=== PATIENT | female | born 1965 | race Caucasian/White ===

== ENCOUNTER 2017-09-19 16:20 | Inpatient (IN) | payer OTHER ==
[2017-09-19 17:31] VITALS: BMI 21.2
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
[2017-09-19] MEDS ORDERED: chlordiazePOXIDE HCL 25 MG CAPSULE PO PRN (18:06)
[2017-09-19] MEDS ORDERED: IBUPROFEN 400 MG TABLET (FP) PO PRN (18:06)
[2017-09-19] MEDS ORDERED: ACETAMINOPHEN 325 MG TABLET (FP) PO PRN (18:06)
[2017-09-19] MEDS ORDERED: MAGNESIUM CITRATE 300 ML BOTTLE PO PRN (18:06)
[2017-09-19] MEDS ORDERED: P-EPHED 60MG/TRIPROLIDI 2.5MG TABLET PO PRN (18:06)
[2017-09-19] MEDS ORDERED: guaiFENesin/D-METHORPHAN HB 10 ML UNIT-DOSE CUPS PO PRN (18:06)
[2017-09-19] MEDS ORDERED: MENTHOL/PHENOL 1 EACH UD MM PRN (18:06)
[2017-09-19] MEDS ORDERED: MAG HYDROX/AL HYDROX/SIMETH 30 ML UNIT-DOSE CUP PO PRN (18:06)
[2017-09-19] MEDS ORDERED: LOPERAMIDE HCL 2 MG CAPSULE PO PRN (18:06)
[2017-09-19] MEDS ORDERED: MAGNESIUM HYDROX 2400MG/30ML ORAL SUSPENSION 30 ML CUP PO PRN (18:06)
[2017-09-19] MEDS ORDERED: ALBUTEROL SO4 18 GM HFA INHALER IH PRN (18:10)
[2017-09-19] MEDS ORDERED: metroNIDAZOLE 250 MG TABLET PO ONE (19:15)
[2017-09-19] MEDS: metroNIDAZOLE 0.75% VAGINAL GEL 70 GM TUBE VG SCH (22:27)
[2017-09-19] MEDS: THIAMINE HCL 100 MG TABLET (FP) PO SCH (22:27)
[2017-09-19] MEDS: chlordiazePOXIDE HCL 25 MG CAPSULE PO SCH (22:28)
[2017-09-19] MEDS: MONTELUKAST NA 10 MG TABLET PO SCH (22:28)
[2017-09-19] MEDS: hydrOXYzine PAMOATE 50 MG CAPSULE (FP) PO PRN (22:30)
[2017-09-19 23:32] LABS: URINE APPEARANCE SLCLOUDY; URINE BILIRUBIN NEGATIVE (NEGATIVE); URINE BLOOD 2+ (NEGATIVE); URINE COLOR YELLOW; URINE GLUCOSE (UA) NEGATIVE (NEGATIVE); URINE KETONE NEGATIVE (NEGATIVE); URINE NITRITE NEGATIVE (NEGATIVE); URINE PROTEIN NEGATIVE (NEGATIVE); URINE UROBILINOGEN NEGATIVE mg/dL (0.2-1.0)
[2017-09-20 00:10] LABS: URINE BACTERIA MANY /hpf (NONE SEEN); URINE MUCUS MANY
[2017-09-20] MEDS ORDERED: ZOLPIDEM TARTRATE 10 MG TABLET (PARK CARE ONLY) PO ONE (00:28)
[2017-09-20 01:09] LABS: URINE RBC 64; URINE WBC 35
--- NOTE | 2017-09-20 09:44 | PN ---
[facility] CIWA - CIWA Score Nausea/Vomitin-No Nausea/No Vomiting Muscle Tremors: 4-Moderate,w/Arms Extend Anxiety: 5 Agitation: 5 Paroxysmal Sweats: 3 Orientation: 1-Uncertain about Date Tacttile Disturbances: 0-None Auditory Disturbances: 0-None Visual Disturbances: 0-None Headache: 0-None Present CIWA-Ar Total Score: 18 [facility] Progress Note (SOAP) Subjective: Very anxious & agitated,sweating,tremors,interrupted sleep,restless. Objective: 09/20/17 09:43 Vital Signs - 8 hr 09/20/17 09/20/17 03:30 06:00 Temperature 96.6 F L Pulse Rate 64 Respiratory 18 18 Rate Blood Pressure 84/53 Laboratory Tests 09/19/17 21:53 Urine Color Yellow Urine Appearance Slcloudy Urine pH 6.0 Ur Specific [place] 1.006 Urine Protein Negative Urine Glucose (UA) Negative Urine Ketones Negative Urine Blood 2+ H Urine Nitrite Negative Urine Bilirubin Negative Urine Urobilinogen Negative Urine RBC 64 Urine WBC 35 Ur Epithelial Cells Rare Urine Bacteria Many Urine Mucus Many u/a noted, U/C&S ordered Assessment: 09/20/17 09:44 Withdrawal sx. Plan: Continue detox
[2017-09-20 10:18] LABS: MCH 26.2 pg (25.7-33.7); MCHC 32.2 g/dl (32.0-36.0); MEAN CELL VOLUME 81.2 fl (80-96); PLATELET COUNT 262 K/MM3 (134-434); RDW 14.9 % (11.6-15.6)
[2017-09-20] MEDS: PANTOPRAZOLE 40 MG TABLET (FP) PO SCH (10:22)
[2017-09-20] MEDS: PRENATAL VITAMINS W/ FOLIC ACID TABLET (FP) PO SCH (10:23)
[2017-09-20] MEDS: NICOTINE 14 MG/24 HOURS TOPICAL PATCH TD SCH (10:24)
[2017-09-20] MEDS: hydrOXYzine PAMOATE 50 MG CAPSULE (FP) PO PRN ×3 (10:25→22:19)
[2017-09-20 10:31] LABS: ANION GAP 7 (8-16); CALCIUM 8.4 mg/dL (8.5-10.1); CO2 29 mmol/L (21-32); GLUCOSE,RANDOM 93 mg/dL (74-106)
[2017-09-20 10:35] LABS: ALK PHOS 78 U/L (45-117); BILIRUBIN,TOTAL 0.4 mg/dL (0.2-1.0); CREATININE 0.6 mg/dL (0.55-1.02); SGOT/AST 9 U/L (15-37); SGPT/ALT 17 U/L (12-78); TOT PROT 6.1 g/dl (6.4-8.2)
[2017-09-20] MEDS ORDERED: diazePAM 5 MG TABLET PO ONE (11:00)
[2017-09-20 11:54] LABS: URINE LEUK ESTERASE 3+ (NEGATIVE)
[2017-09-20] MEDS ORDERED: FLU VACCINE QUAD 60 MCG/0.5 ML (MDV 17-18) IM ONE ×2 (12:00→14:15)
[2017-09-20] MEDS: NICOTINE POLACRILEX 2 MG GUM BC PRN (13:00)
[2017-09-20] MEDS: diazePAM 5 MG TABLET PO SCH ×2 (14:11→22:18)
--- NOTE | 2017-09-20 17:14 | CONSULT ---
[facility] Psychiatric Consult - Data Date of interview: 09/20/17 Admission source: [facility] Identifying data: Readmission to [facility] for this 52 y/o female seeking detox treatment on for alcohol and cocaine (crack) dependence.Patient is ,a mother of four,domiciled,unemployed and supported on SSI benefits. Substance Abuse History: Patient admits to continuous use of alcohol and crack/ cocaine. Smoking history: Current every day smoker. Have you smoked in the past 12 months: Yes. Aproximately how many cigarettes per day: 40. Cigars Per Day: 0. Hx Chewing Tobacco Use: No. Initiated information on smoking cessation : Yes. 'Breaking Loose' booklet given: 09/19/17. - Substance & Tx. History. Hx Alcohol Use: Yes. Hx Substance Use: Yes (Cocaine). Substance Use Type: Alcohol, Cocaine, Prescribed. Hx Substance Use Treatment: Yes ([facility] 2015). - Substances Abused. Alcohol. Route: Oral. Frequency: Daily. Amount used: 2 FIFTHS OF VODKA. Age of first use: 13. Date of Last Use: 09/19/17. Cocaine. Route: Smoking. Frequency: Daily. Amount used: $300-400. Age of first use: 19. Date of Last Use: 09/19/17 Medical History: History of breast cancer (left partial mastectomy/breast reconstruction in 2008) and past orthosurgery for fracture of left ankle. Psychiatric History: Diagnosed with Bipolar Disorder.No history of psychiatric hospitalizations (only CPEP visits at [facility]).Ms Mosher is seeing a psychiatrist at [facility] in the [place].Prescribed prozac 40 mg/day + lamictal 200 mg/day + trazodone 100 mg/hs + seroquel 50 mg/am + 100 mg/hs + remeron 30 mg/hs + ambien and xanax.Patient indicates that she last took her medications two days ago.No reported history of suicide attempts. Physical/Sexual Abuse/Trauma History: Patient denies history of abuse. Additional Comment: Urine Drug Screen Results: COLTEN-Cocaine, BZO-Benzodiazepines , TCA-Tricyclic Antidepressant.Noted. Mental Status Exam - Mental Status Exam Alert and Oriented to: Time, Place, Person Cognitive Function: Good Patient Appearance: Well Groomed Mood: Withdrawn, Anxious Affect: Mood Congruent Patient Behavior: Fatigued, Appropriate, Cooperative Speech Pattern: Clear Voice Loudness: Normal Thought Process: Intact, Goal Oriented Thought Disorder: Not Present Hallucinations: Denies Suicidal Ideation: Denies Homicidal Ideation: Denies Insight/Judgement: Poor Sleep: Poorly, Difficulty falling asleep Appetite: Good Muscle strength/Tone: Normal Gait/Station: Normal Psychiatric Findings - Problem List ([place] 1, 2,3) (1) Alcohol dependence with uncomplicated withdrawal Current Visit: Yes Status: Acute (2) Cocaine dependence, uncomplicated Current Visit: Yes Status: Acute (3) Nicotine dependence Current Visit: Yes Status: Acute Qualifiers: Nicotine product type: cigarettes Substance use status: uncomplicated Qualified Code(s): F17.210 - Nicotine dependence, cigarettes, uncomplicated; F17.210 - Nicotine dependence, cigarettes, uncomplicated (4) Substance induced mood disorder Current Visit: Yes Status: Suspected (5) Bipolar disorder Current Visit: Yes Status: Chronic Comment: As per records.On lamictal and seroquel. - Initial Treatment Plan Initial Treatment Plan: Psychoeducation.Detoxification in progress.Contact made with [facility] at [phone] : refills registered on 08/20/17 for prozac 40 mg/day + seroquel 50 mg/hs + lamictal 200 mg/day + trazodone 100 mg/hs as per pharmacist.Will resume prozac 40 mg po daily + lamictal 100 mg po daily.Seroquel and trazodone are held in view of hypotension.Side effects/ benefits of these medications are discussed with the patient.Informed,in particular,about risk of exfoliative dermatitis and instructed to be watchful of skin rash.Patient is agreable with this plan of care.Observation.
[2017-09-20] MEDS: diazePAM 5 MG TABLET PO PRN (20:09)
[2017-09-20] MEDS: THIAMINE HCL 100 MG TABLET (FP) PO SCH (22:18)
[2017-09-20] MEDS: MONTELUKAST NA 10 MG TABLET PO SCH (22:18)
[2017-09-20] MEDS: metroNIDAZOLE 0.75% VAGINAL GEL 70 GM TUBE VG SCH (22:18)
[2017-09-20] MEDS ORDERED: chlordiazePOXIDE HCL 25 MG CAPSULE PO SCH (23:00)
[2017-09-20] MEDS ORDERED: ZOLPIDEM TARTRATE 5 MG TABLET PO STA (23:41)
[2017-09-21] MEDS: chlordiazePOXIDE HCL 25 MG CAPSULE PO SCH (02:19)
[2017-09-21] MEDS: diazePAM 5 MG TABLET PO SCH ×3 (06:58→22:08)
[2017-09-21] MEDS: diazePAM 5 MG TABLET PO PRN ×2 (08:56→17:36)
[2017-09-21] MEDS: PRENATAL VITAMINS W/ FOLIC ACID TABLET (FP) PO SCH (10:19)
[2017-09-21] MEDS: PANTOPRAZOLE 40 MG TABLET (FP) PO SCH (10:19)
[2017-09-21] MEDS: FLUoxetine HCL 20 MG CAPSULE (FP) PO SCH (10:19)
[2017-09-21] MEDS: lamoTRIgine 100 MG TABLET (FP) PO SCH (10:19)
[2017-09-21] MEDS: NICOTINE 14 MG/24 HOURS TOPICAL PATCH TD SCH (10:20)
[2017-09-21] MEDS: NICOTINE POLACRILEX 2 MG GUM BC PRN ×2 (10:23→22:11)
[2017-09-21] MEDS: hydrOXYzine PAMOATE 50 MG CAPSULE (FP) PO PRN ×2 (10:23→17:38)
--- NOTE | 2017-09-21 10:54 | PN ---
[facility] CIWA - CIWA Score Nausea/Vomitin-No Nausea/No Vomiting Muscle Tremors: 4-Moderate,w/Arms Extend Anxiety: 4-Mod. Anxious/Guarded Agitation: 4-Moderately Restless Paroxysmal Sweats: 3 Orientation: 0-Oriented Tacttile Disturbances: 0-None Auditory Disturbances: 0-None Visual Disturbances: 0-None Headache: 0-None Present CIWA-Ar Total Score: 15 S Progress Note (SOAP) Subjective: Anxiety,tremors,agitation,sweating,interrupted sleep.C/O outbreak of genital herpes. Objective: 09/21/17 10:51 Vital Signs - 8 hr 09/21/17 09/21/17 09/21/17 03:30 06:00 10:00 Temperature 97.3 F L 97.5 F L Pulse Rate 67 78 Respiratory 18 18 18 Rate Blood Pressure 101/53 99/65 Laboratory Tests 09/19/17 09/19/17 09/20/17 21:53 21:53 07:55 WBC 7.0 RBC 4.88 Hgb 12.8 Hct 39.6 MCV 81.2 MCH 26.2 MCHC 32.2 RDW 14.9 Plt Count 262 MPV 8.0 D Sodium Potassium Chloride Carbon Dioxide Anion Gap BUN Creatinine Creat Clearance w eGFR Random Glucose Calcium Total Bilirubin AST ALT Alkaline Phosphatase Total Protein Albumin Urine Color Yellow Urine Appearance Slcloudy Urine pH 6.0 Ur Specific [place] 1.006 Urine Protein Negative Urine Glucose (UA) Negative Urine Ketones Negative Urine Blood 2+ H Urine Nitrite Negative Urine Bilirubin Negative Urine Urobilinogen Negative Ur Leukocyte Esterase 3+ H Urine RBC 64 Cancelled Urine WBC 35 Cancelled Ur Epithelial Cells Rare Cancelled Urine Crystals Cancelled Calcium Oxalate Crystal Cancelled Uric Acid Crystals Cancelled Triple Phos Crystals Cancelled Amorphous Phosphates Cancelled Amorphous Urates Cancelled Amorphous Sediment Cancelled Urine Bacteria Many Cancelled Urine Casts Cancelled Hyaline Casts Cancelled Granular Casts Cancelled Waxy Casts Cancelled RBC Casts Cancelled WBC Casts Cancelled Urine Mucus Many Cancelled Urine Other Cancelled Urine Trichomonas Cancelled Urine Yeast Cancelled RPR Titer 09/20/17 09/20/17 07:55 07:55 WBC RBC Hgb Hct MCV MCH MCHC RDW Plt Count MPV Sodium 143 Potassium 3.8 Chloride 107 Carbon Dioxide 29 Anion Gap 7 L BUN 19 H D Creatinine 0.6 Creat Clearance w eGFR > 60 Random Glucose 93 D Calcium 8.4 L Total Bilirubin 0.4 AST 9 L ALT 17 Alkaline Phosphatase 78 Total Protein 6.1 L Albumin 3.0 L Urine Color Urine Appearance Urine pH Ur Specific [place] Urine Protein Urine Glucose (UA) Urine Ketones Urine Blood Urine Nitrite Urine Bilirubin Urine Urobilinogen Ur Leukocyte Esterase Urine RBC Urine WBC Ur Epithelial Cells Urine Crystals Calcium Oxalate Crystal Uric Acid Crystals Triple Phos Crystals Amorphous Phosphates Amorphous Urates Amorphous Sediment Urine Bacteria Urine Casts Hyaline Casts Granular Casts Waxy Casts RBC Casts WBC Casts Urine Mucus Urine Other Urine Trichomonas Urine Yeast RPR Titer Nonreactive labs noted Assessment: 09/21/17 10:52 Withdrawal sx. HSV genitalis by hx. Plan: Continue detox Valtrex
[2017-09-21] MEDS: valACYclovir HCL 500 MG TABLET (FP) PO SCH ×2 (12:30→22:08)
[2017-09-21] MEDS: QUEtiapine FUMARATE 50 MG TABLET PO SCH (13:00)
[2017-09-21] MEDS ORDERED: valACYclovir HCL 500 MG TABLET (FP) PO ONE (17:22)
[2017-09-21] MEDS ORDERED: ZOLPIDEM TARTRATE 5 MG TABLET PO PRN (22:00)
[2017-09-21] MEDS: THIAMINE HCL 100 MG TABLET (FP) PO SCH (22:08)
[2017-09-21] MEDS: MONTELUKAST NA 10 MG TABLET PO SCH (22:08)
[2017-09-21] MEDS: metroNIDAZOLE 0.75% VAGINAL GEL 70 GM TUBE VG SCH (22:08)
[2017-09-21] MEDS ORDERED: chlordiazePOXIDE 5 MG CAPSULE PO SCH (23:00)
[2017-09-22] MEDS: FLUoxetine HCL 20 MG CAPSULE (FP) PO SCH (10:18)
[2017-09-22] MEDS: diazePAM 5 MG TABLET PO SCH ×2 (10:18→22:19)
[2017-09-22] MEDS: PANTOPRAZOLE 40 MG TABLET (FP) PO SCH (10:19)
[2017-09-22] MEDS: PRENATAL VITAMINS W/ FOLIC ACID TABLET (FP) PO SCH (10:19)
[2017-09-22] MEDS: QUEtiapine FUMARATE 50 MG TABLET PO SCH (10:19)
[2017-09-22] MEDS: valACYclovir HCL 500 MG TABLET (FP) PO SCH ×2 (10:19→22:19)
[2017-09-22] MEDS: lamoTRIgine 100 MG TABLET (FP) PO SCH (10:19)
[2017-09-22] MEDS: NICOTINE 14 MG/24 HOURS TOPICAL PATCH TD SCH (10:21)
[2017-09-22] MEDS: NICOTINE POLACRILEX 2 MG GUM BC PRN (10:22)
--- NOTE | 2017-09-22 11:02 | PN ---
[facility] Progress Note (SOAP) Subjective: nausea, sweats, interrupted sleep, anxiety Objective: 09/22/17 11:01 Vital Signs - 8 hr 09/22/17 09/22/17 09/22/17 03:30 06:30 10:23 Temperature 97.5 F L 97.9 F Pulse Rate 60 67 Respiratory 18 16 16 Rate Blood Pressure 90/59 97/59 Laboratory Tests 09/19/17 09/19/17 09/20/17 21:53 21:53 07:55 WBC 7.0 RBC 4.88 Hgb 12.8 Hct 39.6 MCV 81.2 MCH 26.2 MCHC 32.2 RDW 14.9 Plt Count 262 MPV 8.0 D Sodium Potassium Chloride Carbon Dioxide Anion Gap BUN Creatinine Creat Clearance w eGFR Random Glucose Calcium Total Bilirubin AST ALT Alkaline Phosphatase Total Protein Albumin Urine Color Yellow Urine Appearance Slcloudy Urine pH 6.0 Ur Specific [place] 1.006 Urine Protein Negative Urine Glucose (UA) Negative Urine Ketones Negative Urine Blood 2+ H Urine Nitrite Negative Urine Bilirubin Negative Urine Urobilinogen Negative Ur Leukocyte Esterase 3+ H Urine RBC 64 Cancelled Urine WBC 35 Cancelled Ur Epithelial Cells Rare Cancelled Urine Crystals Cancelled Calcium Oxalate Crystal Cancelled Uric Acid Crystals Cancelled Triple Phos Crystals Cancelled Amorphous Phosphates Cancelled Amorphous Urates Cancelled Amorphous Sediment Cancelled Urine Bacteria Many Cancelled Urine Casts Cancelled Hyaline Casts Cancelled Granular Casts Cancelled Waxy Casts Cancelled RBC Casts Cancelled WBC Casts Cancelled Urine Mucus Many Cancelled Urine Other Cancelled Urine Trichomonas Cancelled Urine Yeast Cancelled RPR Titer 09/20/17 09/20/17 07:55 07:55 WBC RBC Hgb Hct MCV MCH MCHC RDW Plt Count MPV Sodium 143 Potassium 3.8 Chloride 107 Carbon Dioxide 29 Anion Gap 7 L BUN 19 H D Creatinine 0.6 Creat Clearance w eGFR > 60 Random Glucose 93 D Calcium 8.4 L Total Bilirubin 0.4 AST 9 L ALT 17 Alkaline Phosphatase 78 Total Protein 6.1 L Albumin 3.0 L Urine Color Urine Appearance Urine pH Ur Specific [place] Urine Protein Urine Glucose (UA) Urine Ketones Urine Blood Urine Nitrite Urine Bilirubin Urine Urobilinogen Ur Leukocyte Esterase Urine RBC Urine WBC Ur Epithelial Cells Urine Crystals Calcium Oxalate Crystal Uric Acid Crystals Triple Phos Crystals Amorphous Phosphates Amorphous Urates Amorphous Sediment Urine Bacteria Urine Casts Hyaline Casts Granular Casts Waxy Casts RBC Casts WBC Casts Urine Mucus Urine Other Urine Trichomonas Urine Yeast RPR Titer Nonreactive Assessment: 09/22/17 11:01 withdrawal sx Plan: cont detox, fluids, encourage ambulation
[2017-09-22] MEDS: hydrOXYzine PAMOATE 50 MG CAPSULE (FP) PO PRN (12:05)
[2017-09-22] MEDS: diazePAM 5 MG TABLET PO PRN ×2 (13:35→19:38)
[2017-09-22] MEDS: CLOTRIMAZOLE/BETAMET DIPROP TOPICAL CREAM 45 GM TUBE TP SCH ×2 (14:42→22:35)
[2017-09-22] MEDS ORDERED: traZODone HCL 50 MG TABLET (FP) PO SCH (22:00)
[2017-09-22] MEDS: THIAMINE HCL 100 MG TABLET (FP) PO SCH (22:19)
[2017-09-22] MEDS: MONTELUKAST NA 10 MG TABLET PO SCH (22:19)
[2017-09-22] MEDS ORDERED: chlordiazePOXIDE HCL 10 MG CAPSULE PO SCH (23:00)
[2017-09-23] MEDS ORDERED: ZOLPIDEM TARTRATE 10 MG TABLET (PARK CARE ONLY) PO ONE (01:17)
[2017-09-23] MEDS ORDERED: ZOLPIDEM TARTRATE 10 MG TABLET (PARK CARE ONLY) PO PRN (01:20)
--- NOTE | 2017-09-23 07:45 | EKG ---
Test Reason : Blood Pressure : / mmHG Vent. Rate : 081 BPM Atrial Rate : 081 BPM P-R Int : 170 ms QRS Dur : 086 ms QT Int : 384 ms P-R-T Axes : -01 020 017 degrees QTc Int : 446 ms NORMAL SINUS RHYTHM NORMAL ECG NO PREVIOUS ECGS AVAILABLE Confirmed by ARELI GOLDEN, CLARENCE ([id number]) on 09/23/2017 7:45:06 AM Referred By: Carlos Ornelas Confirmed By:CLARENCE SINGLETON MD
--- NOTE | 2017-09-23 08:06 | PN ---
S Progress Note Note: URINE FOR C/S SHOWED STREP AGALACTIAE GROUP B WILL START ON AMOXICILLIN 500 MGS PO TID FOR 7 DAYS
[2017-09-23] MEDS: hydrOXYzine PAMOATE 50 MG CAPSULE (FP) PO PRN (08:07)
--- NOTE | 2017-09-23 08:24 | DS ---
[facility] Detox Discharge Summary Admission Date: 09/19/17 Discharge Date: 09/23/17 - History Present History: Alcohol Dependence, Cocaine Dependence Additional Comments: FOLLOW UP WITH AFTER CARE PROGRAM ARRANGEMENT Pertinent Past History: ASTHMA GERD CANCER OF LEFT BREAST ON REMISSION LOW BACK PAIN NICOTINE DEPENDENCE UTI S/P LUMPECTOMY FOR CANCER LEFT BREAST,S/P RADIATION AND CHEMOTHERAPY - Physical Exam Results Vital Signs: Vital Signs Temperature 98.4 F 09/23/17 06:32 Pulse Rate 57 L 09/23/17 06:32 Respiratory Rate 16 09/23/17 06:32 Blood Pressure 90/55 09/23/17 06:32 O2 Sat by Pulse Oximetry (%) Pertinent Admission Physical Exam Findings: WITHDRAWAL SYMPTOM - Treatment Hospital Course: Detox Protocol Followed, Detoxed Safely, Responded well, Discharged Condition Good Patient has Accepted a Rehab Referral to: [facility]CL[facility] - Medication Discharge Medications: Ambulatory Orders Trazodone HCl [Desyrel -] 150 mg PO HS #30 tablet 05/29/16 Zolpidem Tartrate [Ambien] 10 mg PO HS #14 tablet MDD 10 05/29/16 Albuterol Sulfate Inhaler - [Ventolin HFA Inhaler -] 2 inh IH Q4H PRN #1 inhaler 06/03/16 Pantoprazole Sodium [Protonix] 40 mg PO DAILY #30 tablet. 06/03/16 Lamotrigine [Lamictal -] 200 mg PO DAILY 09/19/17 Mirtazapine [Remeron -] 30 mg PO HS 09/19/17 Montelukast Na [Singulair -] 10 mg PO HS 09/19/17 Quetiapine Fumarate [Seroquel -] 100 mg PO HS 09/19/17 Fluoxetine HCl [Prozac -] 40 mg PO DAILY #60 capsule 09/22/17 Lamotrigine [Lamictal] 100 mg PO DAILY #30 tablet 09/22/17 Quetiapine Fumarate [Seroquel -] 50 mg PO HS #30 tablet 09/22/17 Trazodone HCl [Desyrel -] 50 mg PO HS #30 tablet 09/22/17 - Diagnosis (1) Alcohol dependence with uncomplicated withdrawal Current Visit: Yes Status: Acute (2) Cocaine dependence, uncomplicated Current Visit: Yes Status: Acute (3) Nicotine dependence Current Visit: Yes Status: Acute Qualifiers: Nicotine product type: cigarettes Substance use status: uncomplicated Qualified Code(s): F17.210 - Nicotine dependence, cigarettes, uncomplicated; F17.210 - Nicotine dependence, cigarettes, uncomplicated (4) Asthma Current Visit: Yes Status: Chronic Qualifiers: Asthma severity: mild intermittent Asthma complication type: uncomplicated (5) Bipolar disorder Current Visit: Yes Status: Chronic (6) Substance induced mood disorder Current Visit: Yes Status: Suspected (7) Weight decreased Current Visit: No Status: Active (8) Low back pain Current Visit: No Status: Chronic (9) Cancer of left breast Current Visit: Yes Status: Acute (10) Gastroesophageal reflux disease Current Visit: No Status: Chronic (11) S/P radiation therapy Current Visit: Yes Status: Acute (12) Status post chemotherapy Current Visit: Yes Status: Acute (13) Genital herpes Current Visit: Yes Status: Acute (14) UTI (urinary tract infection) Current Visit: Yes Status: Acute - AMA Did Patient Leave Against Medical Advice: No
[2017-09-23 09:43] VITALS: BP 94/59; PULSE 73; TEMP 97
[2017-09-23] MEDS: lamoTRIgine 100 MG TABLET (FP) PO SCH (09:44)
[2017-09-23] MEDS: PRENATAL VITAMINS W/ FOLIC ACID TABLET (FP) PO SCH (09:44)
[2017-09-23] MEDS: PANTOPRAZOLE 40 MG TABLET (FP) PO SCH (09:44)
[2017-09-23] MEDS: valACYclovir HCL 500 MG TABLET (FP) PO SCH (09:44)
[2017-09-23] MEDS: FLUoxetine HCL 20 MG CAPSULE (FP) PO SCH (09:44)
[2017-09-23] MEDS: NICOTINE 14 MG/24 HOURS TOPICAL PATCH TD SCH (09:47)
[2017-09-23] MEDS: QUEtiapine FUMARATE 50 MG TABLET PO SCH (09:47)
[2017-09-23] MEDS ORDERED: diazePAM 5 MG TABLET PO SCH (10:00)
[2017-09-23] MEDS ORDERED: AMOXICILLIN 500 MG CAPSULE (FP) PO SCH (14:00)
== END 2017-09-23 10:00 | disposition home or self-care (01) | DRG 774 ==
LOC: YASAS 16:20 → Y6N 18:58
PROVIDERS: ADMIT Internal Medicine; ATTEND Internal Medicine
PROC: HZ2ZZZZ Detoxification Services for Substance Abuse Treatment (ICD-10-PCS; principal; 2017-09-19)
DX: F10.230 Alcohol dependence with withdrawal, uncomplicated (principal); F14.20 Cocaine dependence, uncomplicated; F17.210 Nicotine dependence, cigarettes, uncomplicated; F31.9 Bipolar disorder, unspecified; F19.24 Other psychoactive substance dependence with psychoactive substance-induced mood disorder; N39.0 Urinary tract infection, site not specified; B95.1 Streptococcus, group B, as the cause of diseases classified elsewhere; K21.9 Gastro-esophageal reflux disease without esophagitis; J45.20 Mild intermittent asthma, uncomplicated; M54.5 Low back pain; G89.29 Other chronic pain; Z85.3 Personal history of malignant neoplasm of breast; Z92.3 Personal history of irradiation; Z92.21 Personal history of antineoplastic chemotherapy; Z87.898 Personal history of other specified conditions
CPT/HCPCS: 36415; 80053; 81003; 81015; 85027; 86593; 87086; 87186; 90688; 93005; 93010; G0008

== ENCOUNTER 2019-12-21 15:22 | Inpatient (IN) | payer OTHER ==
[2019-12-21 18:29] VITALS: BMI 24.2
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
[2019-12-21] MEDS ORDERED: IBUPROFEN 400 MG TABLET (FP) PO PRN (21:57)
[2019-12-21] MEDS ORDERED: ONDANSETRON *ODT* 4 MG TABLET SL PRN (21:57)
[2019-12-21] MEDS ORDERED: NICOTINE POLACRILEX 2 MG GUM BUC PRN (21:57)
[2019-12-21] MEDS ORDERED: MAGNESIUM HYDROX 2400MG/30ML ORAL SUSPENSION 30 ML CUP PO PRN (21:57)
[2019-12-21] MEDS ORDERED: MENTHOL/PHENOL 1 EACH UD MM PRN (21:57)
[2019-12-21] MEDS ORDERED: ACETAMINOPHEN 325 MG TABLET (FP) PO PRN ×2 (21:57)
[2019-12-21] MEDS ORDERED: MELATONIN 5 MG TABLETS PO PRN (21:57)
[2019-12-21] MEDS ORDERED: MAG HYDROX/AL HYDROX/SIMETH 30 ML UNIT-DOSE CUP PO PRN (21:57)
[2019-12-21] MEDS ORDERED: guaiFENesin 200 MG/10 ML 10 ML UNIT-DOSE CUPS PO PRN (21:57)
[2019-12-21] MEDS ORDERED: hydrOXYzine PAMOATE 25 MG CAPSULE (FP) PO PRN (21:57)
[2019-12-21] MEDS ORDERED: BISMUTH SUBSALICYLATE 524 MG/30 ML UD PO PRN (21:57)
[2019-12-21] MEDS ORDERED: MAGNESIUM CITRATE 300 ML BOTTLE PO PRN (21:57)
[2019-12-21] MEDS ORDERED: chlordiazePOXIDE 5 MG CAPSULE PO ONE (22:03)
[2019-12-21] MEDS ORDERED: ALBUTEROL SO4 HFA INHALER IH PRN (22:10)
[2019-12-22] MEDS: THIAMINE HCL 100 MG TABLET (FP) PO SCH ×2 (00:09→22:00)
[2019-12-22] MEDS: chlordiazePOXIDE 5 MG CAPSULE PO SCH ×4 (00:19→22:00)
--- NOTE | 2019-12-22 09:51 | CONSULT ---
[facility] Psychiatric Consult - Data Date of interview: 12/22/19 Admission source: Self-referred Identifying data: Ms Mosher is a 54 years old female, mother of 4 children, unemployed receving [employer], domiciled seeking detox treatment for alcohol and cocaine Substance Abuse History: Reports history of alcohol and cocaine use. Refer to addiction counselor's summary for further information Medical History: Significant for bronchial asthma, histoty partial mastectomy for left breast cancer/breast reconstruction in 2008) and orthosurgery for fracture of left ankle. Smokes cigarettes 1 ppd Psychiatric History: Patient is known to this facility for multiple previous admissions. Historical narative remains consistent. She reports that her first psychiatric contact occured at age 19 when she was diagnosed with Bipolar Disorder and started on psychotropic medications. Reports receiving outpatient psychiatric treatment since. She currently sees a psychiatrist at [facility] and she is prescribed Prozac 40 mg/day, Seroquel 50 g/day & 100 mg/hs, Doxepin 25 mg/hs, Ambien 10 mg/hs and Xanax 0.5 mg/bid. Denies previous psychiatric psychiatric hospitalization or suicidal attempt. However reports previous CPEP visits for overnight observation at [facility]. At present, denies experiencing psychotic, manic symptoms, S/H ideations. However, reports feeling depressed, anxious and sleeping poorly Physical/Sexual Abuse/Trauma History: Denies history of abuse as a child or DV relationship as an adult Mental Status Exam - Mental Status Exam Alert and Oriented to: Time, Place, Person Cognitive Function: Fair Patient Appearance: Well Groomed Mood: Depressed, Anxious Affect: Appropriate Patient Behavior: Cooperative Speech Pattern: Clear Voice Loudness: Normal Thought Process: Intact, Goal Oriented Thought Disorder: Not Present Hallucinations: Denies Suicidal Ideation: Denies Homicidal Ideation: Denies Insight/Judgement: Poor Sleep: Poorly Appetite: Good Muscle strength/Tone: Normal Gait/Station: Normal Psychiatric Findings - Problem List ([place] 1, 2,3) (1) Bipolar disorder Current Visit: No Status: Chronic Comment: As per records.On lamictal and seroquel. (2) Substance induced mood disorder Current Visit: Yes Status: Acute (3) Substance-induced sleep disorder Current Visit: Yes Status: Acute (4) Alcohol dependence with uncomplicated withdrawal Current Visit: No Status: Acute (5) Cocaine dependence Current Visit: No Status: Acute (6) Nicotine dependence Current Visit: No Status: Chronic Qualifiers: Nicotine product type: cigarettes Substance use status: uncomplicated Qualified Code(s): F17.210 - Nicotine dependence, cigarettes, uncomplicated (7) Genital herpes Current Visit: No Status: Acute (8) Gastroesophageal reflux disease Current Visit: No Status: Chronic (9) Low back pain Current Visit: No Status: Chronic Comment: h/o herniated disc disease (10) Cancer of left breast Current Visit: No Status: Chronic - Initial Treatment Plan Initial Treatment Plan: 1) Continue Prozac 40 mg po daily, Doxepin 25 mg po HS and Seroquel 100 mg po HS(dose reduced to prevent excessive sedation due to Drug interaction with Librium). 2) Start Belsomra 10 mg po HS prn for insomnia. 3) Continue inpatient detoxification
[2019-12-22] MEDS: PANTOPRAZOLE 40 MG TABLET PO SCH (10:11)
[2019-12-22] MEDS: PRENATAL VITAMINS W/ FOLIC ACID TABLET (FP) PO SCH (10:11)
[2019-12-22] MEDS: chlordiazePOXIDE HCL 10 MG CAPSULE PO PRN ×2 (10:16→18:04)
[2019-12-22] MEDS: FLUoxetine HCL 20 MG CAPSULE PO SCH (10:50)
[2019-12-22 11:32] LABS: HEMATOCRIT 34.9 % (32.4-45.2); HEMOGLOBIN 11.3 GM/dL (10.7-15.3); MCH 25.6 pg (25.7-33.7); MCHC 32.5 g/dl (32.0-36.0); MEAN CELL VOLUME 78.9 fl (80-96); MEAN PLT VOLUME 8.2 fl (7.5-11.1); PLATELET COUNT 296 K/MM3 (134-434); RBC 4.42 M/mm3 (3.60-5.2); RDW 15.9 % (11.6-15.6); WHITE BLOOD COUNT 7.2 K/mm3 (4.0-10.0)
--- NOTE | 2019-12-22 11:41 | EKG ---
Test Reason : Blood Pressure : / mmHG Vent. Rate : 060 BPM Atrial Rate : 060 BPM P-R Int : 224 ms QRS Dur : 088 ms QT Int : 412 ms P-R-T Axes : 040 026 035 degrees QTc Int : 412 ms SINUS RHYTHM WITH 1ST DEGREE A-V BLOCK OTHERWISE NORMAL ECG WHEN COMPARED WITH ECG OF 19-SEP-2017 19:19, OR INTERVAL HAS INCREASED Confirmed by Andrea Mancera MD ([id number]) on 12/22/2019 11:40:55 AM Referred By: ROSEANNA Confirmed By:Andrea Mancera MD
[2019-12-22 11:47] LABS: ALBUMIN 3.1 g/dl (3.4-5.0); BILIRUBIN,TOTAL 0.2 mg/dL (0.2-1); BLOOD UREA NITROGEN 11.8 mg/dL (7-18); CALCIUM 8.8 mg/dL (8.5-10.1); CREATININE 0.7 mg/dL (0.55-1.3); POTASSIUM 4.6 mmol/L (3.5-5.1); TOT PROT 6.4 g/dl (6.4-8.2)
--- NOTE | 2019-12-22 12:49 | PN ---
S CIWA - CIWA Score Nausea/Vomitin-No Nausea/No Vomiting Muscle Tremors: 3 Anxiety: 2 Agitation: 2 Paroxysmal Sweats: 2 Orientation: 0-Oriented Tacttile Disturbances: 0-None Auditory Disturbances: 0-None Visual Disturbances: 0-None Headache: 0-None Present CIWA-Ar Total Score: 9 BHS Progress Note (SOAP) Subjective: sweats anxiety restless body aches Objective: 12/22/19 12:47 Vital Signs Temperature 97.9 F 12/22/19 09:01 Pulse Rate 70 12/22/19 09:01 Respiratory Rate 16 12/22/19 09:01 Blood Pressure 94/63 12/22/19 09:01 O2 Sat by Pulse Oximetry (%) Laboratory Tests 12/22/19 12/22/19 09:03 09:03 WBC 7.2 RBC 4.42 Hgb 11.3 Hct 34.9 MCV 78.9 L MCH 25.6 L MCHC 32.5 RDW 15.9 H Plt Count 296 MPV 8.2 Sodium 141 Potassium 4.6 Chloride 109 H Carbon Dioxide 31 Anion Gap 2 L BUN 11.8 Creatinine 0.7 Est GFR (CKD-EPI)AfAm 113.84 Est GFR (CKD-EPI)NonAf 98.23 Random Glucose 100 Calcium 8.8 Total Bilirubin 0.2 AST 12 L ALT 17 Alkaline Phosphatase 92 Total Protein 6.4 Albumin 3.1 L aaox3 ambulating no acute distress Assessment: 12/22/19 12:47 withdrawals Plan: continue detox encourage fluids for increase in BP. however, pt states she has always had low bp and not to be alarmed. pt was told we will keep a close eye on her BP to avoid hypotension. pt in agreement.
[2019-12-22] MEDS: METHOCARBAMOL 500 MG TABLET PO PRN (13:32)
[2019-12-22] MEDS ORDERED: LIDOCAINE 5% TOPICAL PATCH TP ONE (14:00)
[2019-12-22] MEDS: hydrOXYzine PAMOATE 50 MG CAPSULE (FP) PO PRN (15:17)
[2019-12-22] MEDS: NICOTINE POLACRILEX 4 MG GUM BUC PRN (15:18)
[2019-12-22] MEDS: QUEtiapine FUMARATE 100 MG TABLET (FP) PO SCH (22:00)
[2019-12-22] MEDS: MONTELUKAST NA 10 MG TABLET PO SCH (22:01)
[2019-12-22] MEDS: LIDOCAINE PATCH REMOVAL MC SCH (22:01)
[2019-12-22] MEDS: DOXEPIN HCL 25 MG CAPSULE PO SCH (22:01)
[2019-12-22] MEDS: SUVOREXANT 10 MG TABLET PO PRN (22:03)
[2019-12-23] MEDS: chlordiazePOXIDE 5 MG CAPSULE PO SCH ×3 (05:59→22:28)
[2019-12-23] MEDS: FLUoxetine HCL 20 MG CAPSULE PO SCH (10:48)
[2019-12-23] MEDS: LIDOCAINE 5% TOPICAL PATCH TP SCH (10:48)
[2019-12-23] MEDS: PANTOPRAZOLE 40 MG TABLET PO SCH (10:48)
[2019-12-23] MEDS: PRENATAL VITAMINS W/ FOLIC ACID TABLET (FP) PO SCH (10:48)
[2019-12-23] MEDS: hydrOXYzine PAMOATE 50 MG CAPSULE (FP) PO PRN ×2 (10:51→20:16)
[2019-12-23] MEDS: METHOCARBAMOL 500 MG TABLET PO PRN ×2 (10:51→20:16)
[2019-12-23] MEDS: NICOTINE POLACRILEX 4 MG GUM BUC PRN ×2 (10:52→18:29)
--- NOTE | 2019-12-23 11:37 | PN ---
S CIWA - CIWA Score Nausea/Vomitin-No Nausea/No Vomiting Muscle Tremors: 3 Anxiety: 2 Agitation: 2 Paroxysmal Sweats: 2 Orientation: 0-Oriented Tacttile Disturbances: 0-None Auditory Disturbances: 0-None Visual Disturbances: 0-None Headache: 0-None Present CIWA-Ar Total Score: 9 S Progress Note (SOAP) Subjective: sweats irritable body aches Objective: 12/23/19 11:36 Vital Signs Temperature 98.1 F 12/23/19 09:16 Pulse Rate 75 12/23/19 09:16 Respiratory Rate 18 12/23/19 09:16 Blood Pressure 101/65 12/23/19 09:16 O2 Sat by Pulse Oximetry (%) Laboratory Tests 12/22/19 12/22/19 12/22/19 09:03 09:03 09:03 WBC 7.2 RBC 4.42 Hgb 11.3 Hct 34.9 MCV 78.9 L MCH 25.6 L MCHC 32.5 RDW 15.9 H Plt Count 296 MPV 8.2 Sodium 141 Potassium 4.6 Chloride 109 H Carbon Dioxide 31 Anion Gap 2 L BUN 11.8 Creatinine 0.7 Est GFR (CKD-EPI)AfAm 113.84 Est GFR (CKD-EPI)NonAf 98.23 Random Glucose 100 Calcium 8.8 Total Bilirubin 0.2 AST 12 L ALT 17 Alkaline Phosphatase 92 Total Protein 6.4 Albumin 3.1 L RPR Titer Nonreactive aaox3 ambulating no acute distress Assessment: 12/23/19 11:37 withdrawals Plan: continue detox increase fluids ensure BID for lunch and dinner
[2019-12-23] MEDS: chlordiazePOXIDE HCL 10 MG CAPSULE PO PRN (18:29)
[2019-12-23] MEDS: DOXEPIN HCL 25 MG CAPSULE PO SCH (22:27)
[2019-12-23] MEDS: QUEtiapine FUMARATE 100 MG TABLET (FP) PO SCH (22:28)
[2019-12-23] MEDS: MONTELUKAST NA 10 MG TABLET PO SCH (22:28)
[2019-12-23] MEDS: THIAMINE HCL 100 MG TABLET (FP) PO SCH (22:28)
[2019-12-23] MEDS: SUVOREXANT 10 MG TABLET PO PRN (22:31)
[2019-12-23] MEDS: LIDOCAINE PATCH REMOVAL MC SCH (23:28)
[2019-12-24] MEDS: chlordiazePOXIDE HCL 10 MG CAPSULE PO SCH ×3 (05:40→22:07)
[2019-12-24] MEDS: PRENATAL VITAMINS W/ FOLIC ACID TABLET (FP) PO SCH (10:47)
[2019-12-24] MEDS: FLUoxetine HCL 20 MG CAPSULE PO SCH (10:47)
[2019-12-24] MEDS: PANTOPRAZOLE 40 MG TABLET PO SCH (10:47)
[2019-12-24] MEDS: LIDOCAINE 5% TOPICAL PATCH TP SCH (10:48)
[2019-12-24] MEDS: chlordiazePOXIDE HCL 10 MG CAPSULE PO PRN ×2 (10:51→17:44)
[2019-12-24] MEDS: hydrOXYzine PAMOATE 50 MG CAPSULE (FP) PO PRN (12:43)
[2019-12-24] MEDS: NICOTINE POLACRILEX 4 MG GUM BUC PRN ×2 (12:45→17:45)
--- NOTE | 2019-12-24 13:32 | PN ---
S CIWA - CIWA Score Nausea/Vomitin-No Nausea/No Vomiting Muscle Tremors: 2 Anxiety: 1-Mildly Anxious Agitation: 1-Slight > Activity Paroxysmal Sweats: No Perspiration Orientation: 0-Oriented Tacttile Disturbances: 0-None Auditory Disturbances: 0-None Visual Disturbances: 0-None Headache: 0-None Present CIWA-Ar Total Score: 4 BHS Progress Note (SOAP) Subjective: dry eyes achy bones Objective: 12/24/19 13:31 Vital Signs Temperature 97.9 F 12/24/19 09:15 Pulse Rate 76 12/24/19 09:15 Respiratory Rate 18 12/24/19 09:15 Blood Pressure 93/59 L 12/24/19 09:15 O2 Sat by Pulse Oximetry (%) aaox3 ambulating no acute distress Assessment: 12/24/19 13:31 mild withdrawals Plan: artificial tears analgesic balm d/c in am
[2019-12-24] MEDS: ARTIFICIAL TEARS (POLYVINYL ALCOHOL) OPTH DROPS OU SCH ×3 (14:43→22:11)
[2019-12-24] MEDS: METHYL SALICYLATE/MENTHOL OINT 30 GM TUBE TP SCH ×2 (14:44→22:11)
[2019-12-24] MEDS: METHOCARBAMOL 500 MG TABLET PO PRN (17:44)
[2019-12-24] MEDS: MONTELUKAST NA 10 MG TABLET PO SCH (22:06)
[2019-12-24] MEDS: SUVOREXANT 10 MG TABLET PO PRN (22:08)
[2019-12-24] MEDS: QUEtiapine FUMARATE 100 MG TABLET (FP) PO SCH (22:10)
[2019-12-24] MEDS: LIDOCAINE PATCH REMOVAL MC SCH (22:10)
[2019-12-24] MEDS: THIAMINE HCL 100 MG TABLET (FP) PO SCH (22:10)
[2019-12-24] MEDS: DOXEPIN HCL 25 MG CAPSULE PO SCH (22:10)
[2019-12-25] MEDS ORDERED: chlordiazePOXIDE HCL 10 MG CAPSULE PO ONE (05:00)
[2019-12-25 06:53] VITALS: TEMP 97.7
[2019-12-25] MEDS: PANTOPRAZOLE 40 MG TABLET PO SCH (09:44)
[2019-12-25] MEDS: METHYL SALICYLATE/MENTHOL OINT 30 GM TUBE TP SCH (09:45)
[2019-12-25] MEDS: PRENATAL VITAMINS W/ FOLIC ACID TABLET (FP) PO SCH (09:45)
[2019-12-25] MEDS: FLUoxetine HCL 20 MG CAPSULE PO SCH (09:45)
[2019-12-25 11:26] VITALS: BP 113/66; PULSE 80
--- NOTE | 2019-12-25 15:07 | DS ---
[facility] Detox Discharge Summary Admission Date: 12/21/19 Discharge Date: 12/25/19 - History Present History: Alcohol Dependence, Cannabis Dependence, Cocaine Dependence Pertinent Past History: Left breast cancer, s/p mastectomy, asthma, MIKE, MDD and bipolar disorder - Physical Exam Results Vital Signs: Vital Signs Temperature 97.7 F 12/25/19 09:26 Pulse Rate 80 12/25/19 09:26 Respiratory Rate 16 12/25/19 09:26 Blood Pressure 113/66 12/25/19 09:26 O2 Sat by Pulse Oximetry (%) Pertinent Admission Physical Exam Findings: Withdrawal sx Laboratory Last Values WBC 7.2 K/mm3 (4.0-10.0) 12/22/19 09:03 RBC 4.42 M/mm3 (3.60-5.2) 12/22/19 09:03 Hgb 11.3 GM/dL (10.7-15.3) 12/22/19 09:03 Hct 34.9 % (32.4-45.2) 12/22/19 09:03 MCV 78.9 fl (80-96) L 12/22/19 09:03 MCH 25.6 pg (25.7-33.7) L 12/22/19 09:03 MCHC 32.5 g/dl (32.0-36.0) 12/22/19 09:03 RDW 15.9 % (11.6-15.6) H 12/22/19 09:03 Plt Count 296 K/MM3 (134-434) 12/22/19 09:03 MPV 8.2 fl (7.5-11.1) 12/22/19 09:03 Sodium 141 mmol/L (136-145) 12/22/19 09:03 Potassium 4.6 mmol/L (3.5-5.1) 12/22/19 09:03 Chloride 109 mmol/L (98-107) H 12/22/19 09:03 Carbon Dioxide 31 mmol/L (21-32) 12/22/19 09:03 Anion Gap 2 MMOL/L (8-16) L 12/22/19 09:03 BUN 11.8 mg/dL (7-18) 12/22/19 09:03 Creatinine 0.7 mg/dL (0.55-1.3) 12/22/19 09:03 Est GFR (CKD-EPI)AfAm 113.84 12/22/19 09:03 Est GFR (CKD-EPI)NonAf 98.23 12/22/19 09:03 Random Glucose 100 mg/dL (74-106) 12/22/19 09:03 Calcium 8.8 mg/dL (8.5-10.1) 12/22/19 09:03 Total Bilirubin 0.2 mg/dL (0.2-1) 12/22/19 09:03 AST 12 U/L (15-37) L 12/22/19 09:03 ALT 17 U/L (13-61) 12/22/19 09:03 Alkaline Phosphatase 92 U/L (45-117) 12/22/19 09:03 Total Protein 6.4 g/dl (6.4-8.2) 12/22/19 09:03 Albumin 3.1 g/dl (3.4-5.0) L 12/22/19 09:03 RPR Titer Nonreactive (NONREACTIVE) 12/22/19 09:03 Labs noted - Treatment Hospital Course: Detox Protocol Followed, Detoxed Safely, Responded well - Medication Discharge Medications: Ambulatory Orders Mirtazapine [Remeron -] 30 mg PO HS 09/19/17 Quetiapine Fumarate [Seroquel -] 100 mg PO HS 09/19/17 Fluoxetine HCl [Prozac -] 40 mg PO DAILY #60 capsule 09/22/17 Quetiapine Fumarate [Seroquel -] 50 mg PO HS #30 tablet 09/22/17 Albuterol Sulfate Inhaler - [Ventolin HFA Inhaler -] 2 inh IH Q4H PRN #1 inhaler 09/23/17 Montelukast Na [Singulair -] 10 mg PO HS #30 tab 09/23/17 Pantoprazole Sodium [Protonix] 40 mg PO DAILY #30 tablet. 09/23/17 Alprazolam [Xanax] 0.5 mg PO DAILY 12/21/19 Cyclobenzaprine HCl [Flexeril 10 mg] 1 tablet PO TID 12/21/19 Doxepin HCl [Sinequan -] 25 mg PO TID 12/21/19 - Diagnosis (1) Alcohol dependence with uncomplicated withdrawal Status: Acute (2) Breast cancer Status: Chronic Qualifiers: Laterality: left (3) Gastroesophageal reflux disease Status: Chronic (4) Substance induced mood disorder Status: Suspected - AMA Did Patient Leave Against Medical Advice: No
== END 2019-12-25 10:07 | disposition home or self-care (01) | DRG 774 ==
LOC: YASAS 15:22 → Y6N 23:28
PROVIDERS: ADMIT Allergy & Immunology; ATTEND Allergy & Immunology
PROC: HZ2ZZZZ Detoxification Services for Substance Abuse Treatment (ICD-10-PCS; principal; 2019-12-21)
DX: F10.230 Alcohol dependence with withdrawal, uncomplicated (principal); F14.20 Cocaine dependence, uncomplicated; F17.210 Nicotine dependence, cigarettes, uncomplicated; F19.24 Other psychoactive substance dependence with psychoactive substance-induced mood disorder; F19.282 Other psychoactive substance dependence with psychoactive substance-induced sleep disorder; F31.9 Bipolar disorder, unspecified; K21.9 Gastro-esophageal reflux disease without esophagitis; L98.8 Other specified disorders of the skin and subcutaneous tissue; J45.909 Unspecified asthma, uncomplicated; M54.5 Low back pain; G89.29 Other chronic pain; Z87.42 Personal history of other diseases of the female genital tract; Z85.3 Personal history of malignant neoplasm of breast; Z91.012 Allergy to eggs
CPT/HCPCS: 36415; 80053; 85027; 86593; 93005; 93010

== ENCOUNTER 2020-06-09 12:09 | Inpatient (IN) | payer OTHER ==
--- NOTE | 2020-06-09 12:59 | BHS.RME ---
Substance Use & Tx History - Substance Use History Alcohol Substance amount: 1 pint vodka Cocaine-Crack Substance amount: $80-100 Frequency of use: Daily Substance route: Smoking Date of Last Use: 06/08/20 Nicotine Substance amount: 1 pack Frequency of use: Daily Substance route: Smoking Date of Last Use: 06/09/20 Physical/Psych/Mental Status - Behavior General Behavior: Increased activity (restlessness, agitation) Eye Contact: Normal - Cooperativeness Cooperativeness: Cooperative - Thinking Thought Processes: Tight, Logical, Goal Directed - Physical Health Problems Is patient presently having any pain?: No Does patient presently have any injuries (include location): No Does patient currently have a fever: No Is patient : No CIWA Nausea/Vomitin-Mild Nausea/No Vomiting Muscle Tremors: 2 Anxiety: 2 Agitation: 2 Paroxysmal Sweats: 1-Minimal Palms Moist Orientation: 0-Oriented Tacttile Disturbances: 0-None Auditory Disturbances: 0-None Visual Disturbances: 0-None Headache: 0-None Present CIWA-Ar Total Score: 8
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
[2020-06-09] MEDS ORDERED: ALBUTEROL SO4 HFA INHALER IH PRN (15:35)
[2020-06-09] MEDS ORDERED: MAGNESIUM CITRATE 300 ML BOTTLE PO PRN (15:36)
[2020-06-09] MEDS ORDERED: MAG HYDROX/AL HYDROX/SIMETH 30 ML UNIT-DOSE CUP PO PRN (15:36)
[2020-06-09] MEDS ORDERED: ACETAMINOPHEN 325 MG TABLET (FP) PO PRN ×2 (15:36)
[2020-06-09] MEDS ORDERED: MENTHOL/PHENOL 1 EACH UD MM PRN (15:36)
[2020-06-09] MEDS ORDERED: BISMUTH SUBSALICYLATE 524 MG/30 ML UD PO PRN (15:36)
[2020-06-09] MEDS ORDERED: IBUPROFEN 400 MG TABLET (FP) PO PRN (15:36)
[2020-06-09] MEDS ORDERED: ONDANSETRON *ODT* 4 MG TABLET SL PRN (15:36)
--- NOTE | 2020-06-09 16:17 | PN ---
[facility] Progress Note Note: Spoke to pharmacist. We are unable to continue the pts Percocet while at [facility]. Pt informed. Pt asked for gabapentin. Order placed for gabapentin 300 mg tid.
[2020-06-09 17:00] LABS: HEMATOCRIT 37.6 % (32.4-45.2); HEMOGLOBIN 11.8 GM/dL (10.7-15.3); MCH 26.5 pg (25.7-33.7); MCHC 31.5 g/dl (32.0-36.0); MEAN CELL VOLUME 84.1 fl (80-96); RBC 4.47 M/mm3 (3.60-5.2); WHITE BLOOD COUNT 11.4 K/mm3 (4.0-10.0)
[2020-06-09 17:33] LABS: ALBUMIN 3.5 g/dl (3.4-5.0); BILIRUBIN,TOTAL 0.5 mg/dL (0.2-1); BLOOD UREA NITROGEN 17.1 mg/dL (7-18); CREATININE 0.8 mg/dL (0.55-1.3); TOT PROT 6.9 g/dl (6.4-8.2)
[2020-06-09 17:34] VITALS: BMI 23.8
[2020-06-09 18:13] LABS: PLATELET COUNT 318 K/MM3 (134-434)
[2020-06-09] MEDS: LIDOCAINE 5% TOPICAL PATCH TP SCH (19:45)
[2020-06-09] MEDS: hydrOXYzine PAMOATE 25 MG CAPSULE (FP) PO SCH ×2 (19:45→22:22)
[2020-06-09] MEDS: PANTOPRAZOLE 40 MG TABLET PO SCH (19:45)
[2020-06-09] MEDS: chlordiazePOXIDE HCL 25 MG CAPSULE PO SCH ×2 (19:46→22:22)
[2020-06-09] MEDS: NICOTINE POLACRILEX 2 MG GUM BUC PRN (20:53)
[2020-06-09] MEDS: METHOCARBAMOL 500 MG TABLET PO PRN (20:54)
[2020-06-09] MEDS: THIAMINE HCL 100 MG TABLET (FP) PO SCH (22:22)
[2020-06-09] MEDS: LIDOCAINE PATCH REMOVAL MC SCH (22:22)
[2020-06-09] MEDS: GABAPENTIN 300 MG CAPSULE PO SCH (22:22)
[2020-06-09] MEDS: METHYL SALICYLATE/MENTHOL OINT 30 GM TUBE TP SCH (22:22)
[2020-06-09] MEDS: MELATONIN 5 MG TABLETS PO SCH (22:22)
[2020-06-09] MEDS: MONTELUKAST NA 10 MG TABLET PO SCH (22:22)
[2020-06-10] MEDS: GABAPENTIN 300 MG CAPSULE PO SCH ×3 (05:56→22:01)
[2020-06-10] MEDS: chlordiazePOXIDE HCL 25 MG CAPSULE PO SCH ×4 (05:56→22:03)
[2020-06-10] MEDS: hydrOXYzine PAMOATE 25 MG CAPSULE (FP) PO SCH ×5 (05:56→22:03)
[2020-06-10] MEDS: METHOCARBAMOL 500 MG TABLET PO PRN (05:57)
[2020-06-10] MEDS: PRENATAL VITAMINS W/ FOLIC ACID TABLET (FP) PO SCH (10:37)
[2020-06-10] MEDS: METHYL SALICYLATE/MENTHOL OINT 30 GM TUBE TP SCH ×2 (10:38→22:01)
[2020-06-10] MEDS: LIDOCAINE 5% TOPICAL PATCH TP SCH (10:38)
[2020-06-10] MEDS: PANTOPRAZOLE 40 MG TABLET PO SCH (10:39)
[2020-06-10] MEDS: NICOTINE POLACRILEX 2 MG GUM BUC PRN ×2 (10:42→22:07)
[2020-06-10] MEDS: chlordiazePOXIDE HCL 25 MG CAPSULE PO PRN (12:42)
[2020-06-10] MEDS: MAGNESIUM HYDROX 2400MG/30ML ORAL SUSPENSION 30 ML CUP PO PRN ×2 (12:44→17:38)
--- NOTE | 2020-06-10 14:37 | CONSULT ---
[facility] Psychiatric Consult - Data Date of interview: 06/10/20 Admission source: [facility] Identifying data: Readmission to [address] [place] [address] for this 54 y/o female self- referred for detoxification treatment. LATISHA issues : alcohol, cocaine (crack), nicotine. Patient is , a mother of four, domiciled, unemployed and supported on SSI benefits. Substance Abuse History: Discussed with the patient. LATISHA profile as follows : Alcohol. Substance amount: 1 pint vodka. First use age 19 y. Last use 06/09. No seizure, no blackout. 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 Cocaine-Crack. Substance amount: $80-100. Frequency of use: Daily. Substance route: Smoking. Date of Last Use: 06/08/20. First use age 19y. Nicotine. Substance amount: 1 pack. Frequency of use: Daily. Substance route: Smoking. Date of Last Use: 06/09/20. First use age 13 y. History Source: Patient. Limitations to Obtaining History: No Limitations Medical History: Medical history is remarkable for bronchial asthma, chronic lumbar pain, GERD, breast cancer (left partial mastectomy / breast reconstruction in 2008) and surgeries (discectomy + orthosurgery for fracture of left ankle). Psychiatric History: Patient denies history of psychiatric hospitalizations (only CPEP visits at [facility]). Diagnosed with Bipolar Disorder. Ms Mosher continues to see Dr Ortega, psychiatrist, at [facility] in the [place]. Patient is prescribed prozac 40 mg/day + seroquel 50 mg/hs. No reported history of suicide attempts. Physical/Sexual Abuse/Trauma History: Patient denies. Additional Comment: Urine drug screen results: COLTEN-Cocaine, BZO-Benzodiazepines. Noted. Mental Status Exam - Mental Status Exam Alert and Oriented to: Time, Place, Person Cognitive Function: Good Patient Appearance: Well Groomed Mood: Nervous, Withdrawn Affect: Mood Congruent, Constricted Patient Behavior: Fatigued, Appropriate, Cooperative Speech Pattern: Clear, Appropriate Voice Loudness: Normal Thought Process: Intact, Goal Oriented Thought Disorder: Not Present Hallucinations: Denies Suicidal Ideation: Denies Homicidal Ideation: Denies Insight/Judgement: Poor Sleep: Poorly, Difficulty falling asleep Appetite: Fair Gait/Station: Normal Psychiatric Findings - Problem List (Tree[place] 1, 2,3) (1) Alcohol dependence with uncomplicated withdrawal Current Visit: Yes Status: Acute (2) Cocaine dependence Current Visit: Yes Status: Chronic (3) Nicotine dependence Current Visit: Yes Status: Chronic Qualifiers: Nicotine product type: cigarettes Substance use status: uncomplicated Qualified Code(s): F17.210 - Nicotine dependence, cigarettes, uncomplicated (4) Substance induced mood disorder Current Visit: Yes Status: Chronic (5) Bipolar disorder Current Visit: Yes Status: Chronic Comment: According to records + self- report. (6) Insomnia Current Visit: Yes Status: Chronic - Initial Treatment Plan Initial Treatment Plan: Psychoeducation. Sleep hygiene. Detoxification in progress. Medications : prozac 40 mg po daily + seroquel 50 mg po hs. Side effects/benefits of the two drugs are discussed with the patient. Ms Mosher grants her consent (verbal) to MD for continuation of these molecules in current regimen. Observation.
--- NOTE | 2020-06-10 16:26 | PN ---
[facility] CIWA - CIWA Score Nausea/Vomitin-Mild Nausea/No Vomiting Muscle Tremors: 3 Anxiety: 4-Mod. Anxious/Guarded Agitation: 2 Paroxysmal Sweats: No Perspiration Orientation: 0-Oriented Tacttile Disturbances: 0-None Auditory Disturbances: 1-Very Mild Visual Disturbances: 2-Mild Sensitivity Headache: 0-None Present CIWA-Ar Total Score: 13 [facility] Progress Note (SOAP) Subjective: Anxious, Nausea (mild), Tremors, Body Aches, Fatigue, Interrupted Sleep. Objective: Patient A & O X 3, Observed Ambulating on Detox Unit Unassisted. In No Acute Distress. 06/10/20 16:22 Vital Signs Temperature 97.1 F L 06/10/20 12:24 Pulse Rate 79 06/10/20 12:24 Respiratory Rate 20 06/10/20 12:24 Blood Pressure 98/60 06/10/20 12:24 O2 Sat by Pulse Oximetry (%) 98 06/10/20 12:24 Laboratory Tests 06/09/20 06/09/20 06/09/20 15:30 15:30 15:30 WBC 11.4 H RBC 4.47 Hgb 11.8 Hct 37.6 MCV 84.1 MCH 26.5 MCHC 31.5 L RDW 16.0 H Plt Count 318 MPV 8.0 Manual Slide Review Platelet Comment No clumping noted Sodium 143 Potassium 5.0 Chloride 111 H Carbon Dioxide 26 Anion Gap 6 L BUN 17.1 Creatinine 0.8 Est GFR (CKD-EPI)AfAm 96.87 Est GFR (CKD-EPI)NonAf 83.58 Random Glucose 87 Calcium 9.0 Total Bilirubin 0.5 AST 18 ALT 58 Alkaline Phosphatase 79 Total Protein 6.9 Albumin 3.5 Syphilis Serology Non-reactive Lab Results noted. Assessment: 06/10/20 16:23 WITHDRAWAL SYMPTOMS. LEUKOCYTOSIS. Plan: Continue Detox. Elevated WBC level (11.4) noted on Detox Admission Laboratory assessment. Patient denies cough, chest pain, and SOB. Patient denies any unusual urinary complaints (burning, pain, frequency, urgency, hesitancy, visualization of blood in urine). Patient afebrile. UA ordered to R/O possible UTI. Patient advised to increase daily oral water intake for possible dehydration. Patient verbalized understanding of recommendation.
[2020-06-10] MEDS ORDERED: HYDROCORTISONE 2.5% TOPICAL CREAM 30 GM TUBE TP PRN (20:28)
[2020-06-10] MEDS: MONTELUKAST NA 10 MG TABLET PO SCH (22:01)
[2020-06-10] MEDS: QUEtiapine FUMARATE 50 MG TABLET PO SCH (22:02)
[2020-06-10] MEDS: LIDOCAINE PATCH REMOVAL MC SCH (22:03)
[2020-06-10] MEDS: THIAMINE HCL 100 MG TABLET (FP) PO SCH (22:03)
[2020-06-10] MEDS: MELATONIN 5 MG TABLETS PO SCH (22:03)
[2020-06-11] MEDS: chlordiazePOXIDE HCL 25 MG CAPSULE PO PRN ×2 (02:44→12:33)
[2020-06-11] MEDS: hydrOXYzine PAMOATE 25 MG CAPSULE (FP) PO SCH ×5 (06:24→21:59)
[2020-06-11] MEDS: chlordiazePOXIDE HCL 25 MG CAPSULE PO SCH ×2 (06:25→10:18)
[2020-06-11] MEDS: GABAPENTIN 300 MG CAPSULE PO SCH ×3 (06:25→22:00)
--- NOTE | 2020-06-11 10:04 | PN ---
S CIWA - CIWA Score Nausea/Vomitin-Mild Nausea/No Vomiting Muscle Tremors: 1-None Visible, but [place] Anxiety: 1-Mildly Anxious Agitation: 2 Paroxysmal Sweats: 1-Minimal Palms Moist Orientation: 0-Oriented Tacttile Disturbances: 1-Very Mild Itch/Numbness Auditory Disturbances: 0-None Visual Disturbances: 1-Very Mild Sensitivity Headache: 0-None Present CIWA-Ar Total Score: 8 [facility] Progress Note (SOAP) Subjective: 54 years old female admitted on 06/09/20 for alcohol withdrawal sx management treating with librium detox regiment reports long history of hemorroid treated with over the counter hemorroid suppository preparation H order bid reports dry eye no redness of sclear denies pain artificial tears reports chronic back pain treated with percocet discussing the risks of percocet continue neurontin report chronic anxiety treated with xanax requests to be seen by a psychiatrist for higher dose of seroquel psychiatrist referral Objective: 06/11/20 10:06 Vital Signs - 24 hr 06/10/20 06/10/20 06/11/20 12:24 17:35 07:01 Temperature 97.1 F L 97.6 F Pulse Rate 79 70 63 Respiratory 20 18 18 Rate Blood Pressure 98/60 107/73 99/60 O2 Sat by Pulse 98 95 Oximetry (%) 06/11/20 08:40 Temperature 97.1 F L Pulse Rate 69 Respiratory 16 Rate Blood Pressure 117/76 O2 Sat by Pulse Oximetry (%) Laboratory Tests 06/09/20 06/09/20 06/09/20 15:30 15:30 15:30 WBC 11.4 H RBC 4.47 Hgb 11.8 Hct 37.6 MCV 84.1 MCH 26.5 MCHC 31.5 L RDW 16.0 H Plt Count 318 MPV 8.0 Manual Slide Review Platelet Comment No clumping noted Sodium 143 Potassium 5.0 Chloride 111 H Carbon Dioxide 26 Anion Gap 6 L BUN 17.1 Creatinine 0.8 Est GFR (CKD-EPI)AfAm 96.87 Est GFR (CKD-EPI)NonAf 83.58 Random Glucose 87 Calcium 9.0 Total Bilirubin 0.5 AST 18 ALT 58 Alkaline Phosphatase 79 Total Protein 6.9 Albumin 3.5 Syphilis Serology Non-reactive 06/11/20 10:07 covid pending Assessment: 06/11/20 10:07 alcohol withdrawal Plan: librium regiment
[2020-06-11] MEDS: METHYL SALICYLATE/MENTHOL OINT 30 GM TUBE TP SCH ×2 (10:17→21:59)
[2020-06-11] MEDS: LIDOCAINE 5% TOPICAL PATCH TP SCH (10:17)
[2020-06-11] MEDS: FLUoxetine HCL 20 MG CAPSULE PO SCH (10:18)
[2020-06-11] MEDS: PANTOPRAZOLE 40 MG TABLET PO SCH (10:18)
[2020-06-11] MEDS: PRENATAL VITAMINS W/ FOLIC ACID TABLET (FP) PO SCH (10:20)
[2020-06-11] MEDS: NICOTINE POLACRILEX 2 MG GUM BUC PRN ×2 (10:20→20:15)
[2020-06-11 10:23] LABS: URINE APPEARANCE CLEAR; URINE BILIRUBIN NEGATIVE (NEGATIVE); URINE COLOR YELLOW; URINE GLUCOSE (UA) NEGATIVE (NEGATIVE); URINE KETONE NEGATIVE (NEGATIVE); URINE LEUK ESTERASE NEGATIVE (NEGATIVE); URINE NITRITE NEGATIVE (NEGATIVE); URINE PROTEIN NEGATIVE (NEGATIVE); URINE UROBILINOGEN 0.2 mg/dL (0.2-1.0)
[2020-06-11] MEDS: PHENYLEPHRINE HCL/COCOA BUTTER SUPPOSITORY RC SCH ×2 (11:45→22:02)
[2020-06-11] MEDS ORDERED: LORazepam 1 MG TABLET PO PRN (13:29)
[2020-06-11] MEDS: ARTIFICIAL TEARS (POLYVINYL ALCOHOL) OPTH DROPS OU SCH ×2 (14:07→21:58)
[2020-06-11] MEDS: LORazepam 2 MG TABLET PO SCH ×2 (17:26→21:59)
[2020-06-11] MEDS: QUEtiapine FUMARATE 50 MG TABLET PO SCH (22:00)
[2020-06-11] MEDS: THIAMINE HCL 100 MG TABLET (FP) PO SCH (22:00)
[2020-06-11] MEDS: MELATONIN 5 MG TABLETS PO SCH (22:01)
[2020-06-11] MEDS: LIDOCAINE PATCH REMOVAL MC SCH (22:01)
[2020-06-11] MEDS: MONTELUKAST NA 10 MG TABLET PO SCH (22:02)
[2020-06-12] MEDS ORDERED: chlordiazePOXIDE HCL 10 MG CAPSULE PO PRN
[2020-06-12] MEDS ORDERED: chlordiazePOXIDE HCL 10 MG CAPSULE PO SCH (05:00)
[2020-06-12] MEDS: LORazepam 1 MG TABLET PO SCH ×2 (05:59→10:10)
[2020-06-12] MEDS: hydrOXYzine PAMOATE 25 MG CAPSULE (FP) PO SCH ×3 (05:59→13:16)
[2020-06-12] MEDS: GABAPENTIN 300 MG CAPSULE PO SCH ×2 (05:59→13:16)
[2020-06-12] MEDS: ARTIFICIAL TEARS (POLYVINYL ALCOHOL) OPTH DROPS OU SCH ×2 (05:59→13:16)
[2020-06-12] MEDS: METHOCARBAMOL 500 MG TABLET PO PRN (06:01)
[2020-06-12 09:11] VITALS: TEMP 97.1
[2020-06-12] MEDS: METHYL SALICYLATE/MENTHOL OINT 30 GM TUBE TP SCH (10:07)
[2020-06-12] MEDS: LIDOCAINE 5% TOPICAL PATCH TP SCH (10:07)
[2020-06-12] MEDS: PRENATAL VITAMINS W/ FOLIC ACID TABLET (FP) PO SCH (10:08)
[2020-06-12] MEDS: PHENYLEPHRINE HCL/COCOA BUTTER SUPPOSITORY RC SCH (10:08)
[2020-06-12] MEDS: FLUoxetine HCL 20 MG CAPSULE PO SCH (10:10)
[2020-06-12] MEDS: PANTOPRAZOLE 40 MG TABLET PO SCH (10:10)
[2020-06-12] MEDS: NICOTINE POLACRILEX 2 MG GUM BUC PRN (10:14)
--- NOTE | 2020-06-12 10:25 | PN ---
S CIWA - CIWA Score Nausea/Vomitin-No Nausea/No Vomiting Muscle Tremors: 1-None Visible, but [place] Anxiety: 1-Mildly Anxious Agitation: 1-Slight > Activity Paroxysmal Sweats: No Perspiration Orientation: 0-Oriented Tacttile Disturbances: 0-None Auditory Disturbances: 0-None Visual Disturbances: 0-None Headache: 3-Moderate (chronic back pain treated with prescription percocet at home) CIWA-Ar Total Score: 6 [facility] Progress Note (SOAP) Subjective: 54 years old female admitted on 06/09/20 for alcohol and librium detox regiment ms leija requests to call home health agency not to sent certified home health aide to her house today feeling better today less tremor mild anxiety Objective: 06/12/20 10:24 Vital Signs - 24 hr 06/11/20 06/11/20 06/11/20 12:27 16:59 20:40 Temperature 96.9 F L 97.8 F 97.3 F L Pulse Rate 90 77 81 Respiratory 20 18 18 Rate Blood Pressure 107/67 109/76 108/77 O2 Sat by Pulse 97 99 Oximetry (%) 06/12/20 06/12/20 05:54 08:33 Temperature 97.3 F L 97.1 F L Pulse Rate 72 84 Respiratory 18 16 Rate Blood Pressure 108/70 105/70 O2 Sat by Pulse 99 Oximetry (%) Laboratory Tests 06/09/20 06/09/20 06/09/20 15:30 15:30 15:30 WBC 11.4 H RBC 4.47 Hgb 11.8 Hct 37.6 MCV 84.1 MCH 26.5 MCHC 31.5 L RDW 16.0 H Plt Count 318 MPV 8.0 Manual Slide Review Platelet Comment No clumping noted Sodium 143 Potassium 5.0 Chloride 111 H Carbon Dioxide 26 Anion Gap 6 L BUN 17.1 Creatinine 0.8 Est GFR (CKD-EPI)AfAm 96.87 Est GFR (CKD-EPI)NonAf 83.58 Random Glucose 87 Calcium 9.0 Total Bilirubin 0.5 AST 18 ALT 58 Alkaline Phosphatase 79 Total Protein 6.9 Albumin 3.5 Urine Color Urine Appearance Urine pH Ur Specific [place] Urine Protein Urine Glucose (UA) Urine Ketones Urine Blood Urine Nitrite Urine Bilirubin Urine Urobilinogen Ur Leukocyte Esterase Syphilis Serology Non-reactive 06/11/20 07:09 WBC RBC Hgb Hct MCV MCH MCHC RDW Plt Count MPV Manual Slide Review Platelet Comment Sodium Potassium Chloride Carbon Dioxide Anion Gap BUN Creatinine Est GFR (CKD-EPI)AfAm Est GFR (CKD-EPI)NonAf Random Glucose Calcium Total Bilirubin AST ALT Alkaline Phosphatase Total Protein Albumin Urine Color Yellow Urine Appearance Clear Urine pH 8.0 D Ur Specific [place] 1.014 Urine Protein Negative Urine Glucose (UA) Negative Urine Ketones Negative Urine Blood Negative Urine Nitrite Negative Urine Bilirubin Negative Urine Urobilinogen 0.2 Ur Leukocyte Esterase Negative Syphilis Serology lab noted Assessment: 06/12/20 10:24 alcohol withdrawal Plan: librium regiment ms leija has alcohol drinking problem taking percocet for pain xanax for anxiety through monthly prescription
[2020-06-12] MEDS ORDERED: FAMOTIDINE 20 MG TABLET PO SCH (12:45)
[2020-06-12 13:31] VITALS: BP 109/69; PULSE 73
--- NOTE | 2020-06-12 13:40 | DS ---
[facility] Detox Discharge Summary Admission Date: 06/09/20 Discharge Date: 06/12/20 - History Present History: Alcohol Dependence Additional Comments: 54 years old female admitted on 06/09/20 for alcohol withdrawal sx management treated with ativan detox regiment ms leija prefers to leave the detox today instead of estimated discharge date of 06/14/20 seen by psychiatrist valdez terry and serocarmelita paredes alert oriented x 3 speech clearly and coherently ambulating with steady gaits respiratory clear lung sounds bilaterally on auscultation abdomen soft flat no rebound tenderness extremities full range of motion Pertinent Past History: time for discharge 48 minutes treatment team met with ms leija to discuss benefits of ativan regiment completion ms leija prefers returning to her percocet and benzo provider for follow up transportation arranged by the counselor from detox to home - Physical Exam Results Vital Signs: Vital Signs Temperature 97.1 F L 06/12/20 12:32 Pulse Rate 73 06/12/20 12:32 Respiratory Rate 16 06/12/20 12:32 Blood Pressure 109/69 06/12/20 12:32 O2 Sat by Pulse Oximetry (%) 100 06/12/20 12:32 Pertinent Admission Physical Exam Findings: alcohol withdrawal Laboratory Tests 06/09/20 06/09/20 06/09/20 14:50 15:30 15:30 WBC 11.4 H RBC 4.47 Hgb 11.8 Hct 37.6 MCV 84.1 MCH 26.5 MCHC 31.5 L RDW 16.0 H Plt Count 318 MPV 8.0 Manual Slide Review Platelet Comment No clumping noted Sodium 143 Potassium 5.0 Chloride 111 H Carbon Dioxide 26 Anion Gap 6 L BUN 17.1 Creatinine 0.8 Est GFR (CKD-EPI)AfAm 96.87 Est GFR (CKD-EPI)NonAf 83.58 Random Glucose 87 Calcium 9.0 Total Bilirubin 0.5 AST 18 ALT 58 Alkaline Phosphatase 79 Total Protein 6.9 Albumin 3.5 Urine Color Urine Appearance Urine pH Ur Specific [place] Urine Protein Urine Glucose (UA) Urine Ketones Urine Blood Urine Nitrite Urine Bilirubin Urine Urobilinogen Ur Leukocyte Esterase POC Urine HCG, Qual Negative Syphilis Serology COVID-19 (ADRIANA) 06/09/20 06/09/20 06/11/20 15:30 17:50 07:09 WBC RBC Hgb Hct MCV MCH MCHC RDW Plt Count MPV Manual Slide Review Platelet Comment Sodium Potassium Chloride Carbon Dioxide Anion Gap BUN Creatinine Est GFR (CKD-EPI)AfAm Est GFR (CKD-EPI)NonAf Random Glucose Calcium Total Bilirubin AST ALT Alkaline Phosphatase Total Protein Albumin Urine Color Yellow Urine Appearance Clear Urine pH 8.0 D Ur Specific [place] 1.014 Urine Protein Negative Urine Glucose (UA) Negative Urine Ketones Negative Urine Blood Negative Urine Nitrite Negative Urine Bilirubin Negative Urine Urobilinogen 0.2 Ur Leukocyte Esterase Negative POC Urine HCG, Qual Syphilis Serology Non-reactive COVID-19 (ADRIANA) Not detected lab noted - Treatment Hospital Course: Detox Protocol Followed, Detoxed Safely, Responded well, Discharged Condition Good, Rehab Referral Accepted Patient has Accepted a Rehab Referral to: [facility] - Medication Discharge Medications: Ambulatory Orders Mirtazapine [Remeron -] 30 mg PO HS 09/19/17 Quetiapine Fumarate [Seroquel -] 100 mg PO HS 09/19/17 Fluoxetine HCl [Prozac -] 40 mg PO DAILY #60 capsule 09/22/17 Quetiapine Fumarate [Seroquel -] 50 mg PO HS #30 tablet 09/22/17 Albuterol Sulfate Inhaler - [Ventolin HFA Inhaler -] 2 inh IH Q4H PRN #1 inhaler 09/23/17 Montelukast Na [Singulair -] 10 mg PO HS #30 tab 09/23/17 Pantoprazole Sodium [Protonix] 40 mg PO DAILY #30 tablet. 09/23/17 Alprazolam [Xanax] 0.5 mg PO DAILY 12/21/19 Cyclobenzaprine HCl [Flexeril 10 mg] 1 tablet PO TID 12/21/19 Doxepin HCl [Sinequan -] 25 mg PO TID 12/21/19 - Diagnosis (1) Alcohol dependence with uncomplicated withdrawal Status: Acute (2) Asthma Status: Chronic Qualifiers: Asthma severity: mild Asthma persistence: intermittent Asthma complication type: uncomplicated Qualified Code(s): J45.20 - Mild intermittent asthma, uncomplicated (3) Cancer of left breast Status: Chronic Qualifiers: Breast location: unspecified site of breast Estrogen receptor status: unspecified Patient sex: female Qualified Code(s): C50.912 - Malignant neoplasm of unspecified site of left female breast (4) Gastroesophageal reflux disease Status: Chronic (5) Nicotine dependence Status: Acute Qualifiers: Nicotine product type: cigarettes Substance use status: in withdrawal Qualified Code(s): F17.213 - Nicotine dependence, cigarettes, with withdrawal (6) Substance induced mood disorder Status: Suspected - AMA Did Patient Leave Against Medical Advice: No CIWA Score - CIWA Score Nausea/Vomitin-No Nausea/No Vomiting Muscle Tremors: 1-None Visible, but [place] Anxiety: 0-No Anxiety, at Ease Agitation: 0-Normal Activity Paroxysmal Sweats: No Perspiration Orientation: 0-Oriented Tacttile Disturbances: 0-None Auditory Disturbances: 0-None Visual Disturbances: 0-None Headache: 3-Moderate (chronic back pain treated with prescription percocet at home) CIWA-Ar Total Score: 4
[2020-06-13] MEDS ORDERED: LORazepam 0.5 MG TABLET PO PRN
[2020-06-13] MEDS ORDERED: LORazepam 0.5 MG TABLET PO SCH (05:00)
[2020-06-13] MEDS ORDERED: chlordiazePOXIDE HCL 10 MG CAPSULE PO SCH (05:00)
[2020-06-14] MEDS ORDERED: LORazepam 0.5 MG TABLET PO ONE (05:00)
[2020-06-14] MEDS ORDERED: chlordiazePOXIDE HCL 10 MG CAPSULE PO ONE (05:00)
== END 2020-06-12 14:30 | disposition home or self-care (01) | DRG 774 ==
LOC: YASAS 12:09 → Y3N 17:12
PROVIDERS: ADMIT Allergy & Immunology; ATTEND Allergy & Immunology
PROC: HZ2ZZZZ Detoxification Services for Substance Abuse Treatment (ICD-10-PCS; principal; 2020-06-09)
DX: F10.230 Alcohol dependence with withdrawal, uncomplicated (principal); F14.20 Cocaine dependence, uncomplicated; F17.210 Nicotine dependence, cigarettes, uncomplicated; F31.9 Bipolar disorder, unspecified; F19.24 Other psychoactive substance dependence with psychoactive substance-induced mood disorder; F41.1 Generalized anxiety disorder; J45.909 Unspecified asthma, uncomplicated; K21.9 Gastro-esophageal reflux disease without esophagitis; K64.9 Unspecified hemorrhoids; G47.00 Insomnia, unspecified; M54.5 Low back pain; G89.29 Other chronic pain; Z85.3 Personal history of malignant neoplasm of breast; Z90.12 Acquired absence of left breast and nipple
CPT/HCPCS: 36415; 80053; 81003; 81025; 85027; 86780; U0003

== ENCOUNTER 2021-09-06 12:04 | Inpatient (IN) | payer OTHER ==
[2021-09-06 12:54] VITALS: BMI 20.9
[2021-09-06] MEDS ORDERED: IBUPROFEN 400 MG TABLET (FP) PO PRN (13:59)
[2021-09-06] MEDS ORDERED: NICOTINE 10 MG CARTRIDGE (INHALER) IH PRN (13:59)
[2021-09-06] MEDS ORDERED: MAG HYDROX/AL HYDROX/SIMETH 30 ML UNIT-DOSE CUP PO PRN (13:59)
[2021-09-06] MEDS ORDERED: MAGNESIUM HYDROX 2400MG/30ML ORAL SUSPENSION 30 ML CUP PO PRN (13:59)
[2021-09-06] MEDS ORDERED: ACETAMINOPHEN 325 MG TABLET (FP) PO PRN ×2 (13:59)
[2021-09-06] MEDS ORDERED: BISMUTH SUBSALICYLATE 262 MG/15 ML BTL PO PRN (13:59)
[2021-09-06] MEDS ORDERED: METHOCARBAMOL 500 MG TABLET PO PRN (13:59)
[2021-09-06] MEDS ORDERED: MENTHOL/PHENOL 1 EACH UD MM PRN (13:59)
[2021-09-06] MEDS ORDERED: MAGNESIUM CITRATE 300 ML BOTTLE PO PRN (13:59)
[2021-09-06] MEDS ORDERED: ALBUTEROL SO4 HFA INHALER IH PRN (14:04)
[2021-09-06] MEDS ORDERED: METHOCARBAMOL 500 MG TABLET ONE (15:27)
[2021-09-06] MEDS ORDERED: diazePAM 5 MG TABLET ONE (15:27)
[2021-09-06] MEDS ORDERED: hydrOXYzine PAMOATE 25 MG CAPSULE (FP) PO ONE (15:28)
[2021-09-06] MEDS: hydrOXYzine PAMOATE 25 MG CAPSULE (FP) PO SCH ×3 (16:55→21:04)
[2021-09-06 17:13] LABS: HEMATOCRIT 38.5 % (32.4-45.2); HEMOGLOBIN 12.7 GM/dL (10.7-15.3); MCH 26.1 pg (25.7-33.7); MCHC 33.1 g/dl (32.0-36.0); MEAN PLT VOLUME 8.1 fl (7.5-11.1); PLATELET COUNT 309 10^3/uL (134-434); RBC 4.87 M/mm3 (3.60-5.2); WHITE BLOOD COUNT 8.5 K/mm3 (4.0-10.0)
[2021-09-06 17:29] LABS: CALCIUM 9.4 mg/dL (8.5-10.1)
[2021-09-06 17:30] LABS: ALBUMIN 3.9 g/dl (3.4-5.0); BLOOD UREA NITROGEN 9.1 mg/dL (7-18)
[2021-09-06 17:33] LABS: CREATININE 0.7 mg/dL (0.55-1.3)
[2021-09-06 17:34] LABS: BILIRUBIN,TOTAL 0.3 mg/dL (0.2-1)
[2021-09-06 17:35] LABS: TOT PROT 7.5 g/dl (6.4-8.2)
[2021-09-06] MEDS: diazePAM 5 MG TABLET PO SCH (18:45)
[2021-09-06] MEDS: MONTELUKAST NA 10 MG TABLET PO SCH (21:02)
[2021-09-06] MEDS: THIAMINE HCL 100 MG TABLET (FP) PO SCH (21:04)
[2021-09-06] MEDS: BUDESONIDE/FORMETEROL FUMARATE 160/4.5 mcg INHALER IH SCH (21:06)
[2021-09-06] MEDS ORDERED: MELATONIN 5 MG TABLETS PO SCH (22:00)
[2021-09-07] MEDS: diazePAM 5 MG TABLET PO SCH ×5 (00:16→22:21)
[2021-09-07] MEDS: ONDANSETRON *ODT* 4 MG TABLET SL PRN ×2 (01:07→17:48)
[2021-09-07] MEDS: diazePAM 5 MG TABLET PO PRN ×2 (01:07→13:22)
[2021-09-07] MEDS: hydrOXYzine PAMOATE 25 MG CAPSULE (FP) PO SCH ×2 (05:42→10:01)
[2021-09-07] MEDS: lamoTRIgine 100 MG TABLET PO SCH (10:01)
[2021-09-07] MEDS: PRENATAL VITAMINS W/ FOLIC ACID TABLET (FP) PO SCH (10:01)
[2021-09-07] MEDS: PANTOPRAZOLE 40 MG TABLET PO SCH (10:01)
[2021-09-07] MEDS: BUDESONIDE/FORMETEROL FUMARATE 160/4.5 mcg INHALER IH SCH ×2 (10:02→23:23)
[2021-09-07] MEDS: ARTIFICIAL TEARS (POLYVINYL ALCOHOL) OPTH DROPS OU SCH (10:03)
[2021-09-07] MEDS ORDERED: IBUPROFEN 400 MG TABLET (FP) PO PRN (11:22)
[2021-09-07] MEDS: LOSARTAN POTASSIUM 25 MG TABLET PO SCH (12:13)
[2021-09-07] MEDS: NICOTINE POLACRILEX 4 MG GUM BUC PRN ×2 (12:20→17:50)
[2021-09-07] MEDS: oxyCODONE HCL 5 MG TABLET PO SCH (12:21)
[2021-09-07 12:44] LABS: HIV INTERPRETATION NEGATIVE (NEGATIVE)
[2021-09-07] MEDS ORDERED: FLU VACC QS2021-22(6MOS UP)/PF 60 MCG/0.5 ML SYRINGE IM ONE (13:00)
[2021-09-07] MEDS ORDERED: ACETAMINOPHEN 325 MG TABLET (FP) PO PRN (13:31)
[2021-09-07] MEDS: hydrOXYzine PAMOATE 25 MG CAPSULE (FP) PO PRN ×2 (17:46→22:21)
[2021-09-07] MEDS: THIAMINE HCL 100 MG TABLET (FP) PO SCH (22:21)
[2021-09-07] MEDS: SUVOREXANT 10 MG TABLET PO PRN (22:21)
[2021-09-07] MEDS: traZODone HCL 50 MG TABLET (FP) PO SCH (22:21)
[2021-09-07] MEDS: MIRTAZAPINE 30 MG TABLET PO SCH (22:21)
[2021-09-07] MEDS: MONTELUKAST NA 10 MG TABLET PO SCH (22:21)
[2021-09-08] MEDS: diazePAM 5 MG TABLET PO SCH ×3 (05:14→22:17)
[2021-09-08] MEDS: METHOCARBAMOL 750 MG TAB PO PRN ×2 (05:14→13:29)
[2021-09-08] MEDS: BUDESONIDE/FORMETEROL FUMARATE 160/4.5 mcg INHALER IH SCH ×2 (10:08→22:18)
[2021-09-08] MEDS: PRENATAL VITAMINS W/ FOLIC ACID TABLET (FP) PO SCH (10:08)
[2021-09-08] MEDS: LOSARTAN POTASSIUM 25 MG TABLET PO SCH (10:08)
[2021-09-08] MEDS: ARTIFICIAL TEARS (POLYVINYL ALCOHOL) OPTH DROPS OU SCH (10:09)
[2021-09-08] MEDS: lamoTRIgine 100 MG TABLET PO SCH (10:09)
[2021-09-08] MEDS: PANTOPRAZOLE 40 MG TABLET PO SCH (10:09)
[2021-09-08] MEDS: diazePAM 5 MG TABLET PO PRN ×2 (10:12→19:38)
[2021-09-08] MEDS: METHYL SALICYLATE/MENTHOL OINT 30 GM TUBE TP SCH ×2 (13:30→22:19)
[2021-09-08] MEDS: hydrOXYzine PAMOATE 25 MG CAPSULE (FP) PO PRN (13:32)
[2021-09-08] MEDS: SUVOREXANT 10 MG TABLET PO PRN (22:17)
[2021-09-08] MEDS: MIRTAZAPINE 30 MG TABLET PO SCH (22:18)
[2021-09-08] MEDS: THIAMINE HCL 100 MG TABLET (FP) PO SCH (22:18)
[2021-09-08] MEDS: MONTELUKAST NA 10 MG TABLET PO SCH (22:18)
[2021-09-08] MEDS: traZODone HCL 50 MG TABLET (FP) PO SCH (22:18)
[2021-09-09] MEDS: diazePAM 5 MG TABLET PO SCH ×2 (05:52→18:12)
[2021-09-09] MEDS: hydrOXYzine PAMOATE 25 MG CAPSULE (FP) PO PRN ×4 (05:53→22:48)
[2021-09-09] MEDS: METHOCARBAMOL 750 MG TAB PO PRN ×2 (05:56→15:38)
[2021-09-09] MEDS: ARTIFICIAL TEARS (POLYVINYL ALCOHOL) OPTH DROPS OU SCH (09:35)
[2021-09-09] MEDS: BUDESONIDE/FORMETEROL FUMARATE 160/4.5 mcg INHALER IH SCH ×2 (09:35→22:42)
[2021-09-09] MEDS: METHYL SALICYLATE/MENTHOL OINT 30 GM TUBE TP SCH ×2 (09:35→23:22)
[2021-09-09] MEDS: LOSARTAN POTASSIUM 25 MG TABLET PO SCH (09:35)
[2021-09-09] MEDS: lamoTRIgine 100 MG TABLET PO SCH (09:36)
[2021-09-09] MEDS: diazePAM 5 MG TABLET PO PRN ×2 (09:36→13:48)
[2021-09-09] MEDS: PRENATAL VITAMINS W/ FOLIC ACID TABLET (FP) PO SCH (09:38)
[2021-09-09] MEDS: PANTOPRAZOLE 40 MG TABLET PO SCH (09:39)
[2021-09-09] MEDS: NICOTINE POLACRILEX 4 MG GUM BUC PRN (15:39)
[2021-09-09] MEDS: traZODone HCL 50 MG TABLET (FP) PO SCH (22:41)
[2021-09-09] MEDS: MIRTAZAPINE 30 MG TABLET PO SCH (22:41)
[2021-09-09] MEDS: MONTELUKAST NA 10 MG TABLET PO SCH (22:42)
[2021-09-09] MEDS: SUVOREXANT 10 MG TABLET PO PRN (22:42)
[2021-09-09] MEDS: THIAMINE HCL 100 MG TABLET (FP) PO SCH (22:43)
[2021-09-10] MEDS ORDERED: diazePAM 5 MG TABLET PO ONE (06:00)
[2021-09-10] MEDS: hydrOXYzine PAMOATE 25 MG CAPSULE (FP) PO PRN (06:27)
[2021-09-10 07:24] VITALS: BP 94/64; PULSE 66; TEMP 66
== END 2021-09-10 09:10 | disposition home or self-care (01) | DRG 774 ==
LOC: YASAS 12:04 → Y6N 14:44
PROVIDERS: ADMIT Allergy & Immunology; ATTEND Allergy & Immunology
PROC: HZ2ZZZZ Detoxification Services for Substance Abuse Treatment (ICD-10-PCS; principal; 2021-09-06)
DX: F10.230 Alcohol dependence with withdrawal, uncomplicated (principal); F14.20 Cocaine dependence, uncomplicated; F17.210 Nicotine dependence, cigarettes, uncomplicated; F19.282 Other psychoactive substance dependence with psychoactive substance-induced sleep disorder; F10.280 Alcohol dependence with alcohol-induced anxiety disorder; F31.9 Bipolar disorder, unspecified; F41.9 Anxiety disorder, unspecified; I10 Essential (primary) hypertension; J45.20 Mild intermittent asthma, uncomplicated; K21.9 Gastro-esophageal reflux disease without esophagitis; N63.10 Unspecified lump in the right breast, unspecified quadrant; R63.4 Abnormal weight loss; Z68.20 Body mass index [BMI] 20.0-20.9, adult; Z85.3 Personal history of malignant neoplasm of breast; Z98.890 Other specified postprocedural states
CPT/HCPCS: 36415; 80053; 85027; 86780; 87389; 90686; C9803; G0008; Q0162; U0003; U0005

== ENCOUNTER 2022-09-12 12:19 | Inpatient (IN) | payer OTHER ==
[2022-09-12 13:25] VITALS: BMI 18.8
[2022-09-12] MEDS ORDERED: MAGNESIUM CITRATE 300 ML BOTTLE PO PRN (13:29)
[2022-09-12] MEDS ORDERED: NALOXONE HCL (KLOXXADO) 8 MG SPRAY NS PRN (13:29)
[2022-09-12] MEDS ORDERED: IBUPROFEN 400 MG TABLET (FP) PO PRN (13:29)
[2022-09-12] MEDS ORDERED: ACETAMINOPHEN 325 MG TABLET (FP) PO PRN (13:29)
[2022-09-12] MEDS ORDERED: LOPERAMIDE HCL 2 MG CAPSULE PO PRN (13:29)
[2022-09-12] MEDS ORDERED: IBUPROFEN 600 MG TABLET (FP) PO PRN (13:29)
[2022-09-12] MEDS ORDERED: NICOTINE 10 MG CARTRIDGE (INHALER) IH PRN (13:29)
[2022-09-12] MEDS ORDERED: BISMUTH SUBSALICYLATE 524 MG/30 ML PO PRN (13:29)
[2022-09-12] MEDS ORDERED: DICYCLOMINE HCL 10 MG CAPSULE PO PRN (13:29)
[2022-09-12] MEDS ORDERED: BENZOCAINE/MENTHOL (CHLORASEPTIC ) LOZENGE MM PRN (13:29)
[2022-09-12] MEDS ORDERED: ONDANSETRON *ODT* 4 MG TABLET SL PRN (13:29)
[2022-09-12] MEDS ORDERED: MAG HYDROX/AL HYDROX/SIMETH 30 ML UNIT-DOSE CUP PO PRN (13:29)
[2022-09-12] MEDS ORDERED: hydrOXYzine PAMOATE 25 MG CAPSULE (FP) PO ONE (15:18)
[2022-09-12] MEDS: hydrOXYzine PAMOATE 25 MG CAPSULE (FP) PO PRN (15:19)
[2022-09-12] MEDS: PRENATAL VITAMINS W/ FOLIC ACID TABLET (FP) PO SCH (15:49)
[2022-09-12 16:54] LABS: HEMATOCRIT 34.8 % (32.4-45.2); HEMOGLOBIN 11.1 GM/dL (10.7-15.3); MCHC 31.9 g/dl (32.0-36.0); MEAN CELL VOLUME 81.7 fl (80-96); MEAN PLT VOLUME 7.7 fl (7.5-11.1); PLATELET COUNT 306 10^3/uL (134-434); RBC 4.25 M/mm3 (3.60-5.2); RDW 15.6 % (11.6-15.6); WHITE BLOOD COUNT 7.4 K/mm3 (4.0-10.0)
[2022-09-12 16:57] LABS: BLOOD UREA NITROGEN 13.4 mg/dL (7-18); CALCIUM 8.7 mg/dL (8.5-10.1)
[2022-09-12 16:58] LABS: ALBUMIN 3.2 g/dl (3.4-5.0)
[2022-09-12 17:01] LABS: CREATININE 0.7 mg/dL (0.55-1.3)
[2022-09-12 17:02] LABS: BILIRUBIN,TOTAL 0.2 mg/dL (0.2-1); TOT PROT 6.4 g/dl (6.4-8.2)
[2022-09-12] MEDS: chlordiazePOXIDE HCL 25 MG CAPSULE PO SCH ×2 (17:37→23:25)
[2022-09-12] MEDS: ALBUTEROL SO4 HFA INHALER IH PRN ×2 (17:37→23:24)
[2022-09-12] MEDS: METHOCARBAMOL 500 MG TABLET PO PRN (17:39)
[2022-09-12] MEDS: ACETAMINOPHEN 325 MG TABLET (FP) PO PRN (17:39)
[2022-09-12] MEDS: NICOTINE POLACRILEX 2 MG GUM BUC PRN ×2 (17:42→23:32)
[2022-09-12] MEDS ORDERED: MELATONIN 5 MG TABLETS PO SCH (22:00)
[2022-09-12] MEDS: BUDESONIDE/FORMETEROL FUMARATE 160/4.5 mcg INHALER IH SCH (23:24)
[2022-09-12] MEDS: MIRTAZAPINE 15 MG TABLET (FP) PO SCH (23:24)
[2022-09-12] MEDS: traZODone HCL 50 MG TABLET (FP) PO SCH (23:25)
[2022-09-12] MEDS: MONTELUKAST NA 10 MG TABLET PO SCH (23:25)
[2022-09-12] MEDS: THIAMINE HCL 100 MG TABLET (FP) PO SCH (23:25)
[2022-09-12] MEDS: SUVOREXANT 10 MG TABLET PO PRN (23:27)
[2022-09-13] MEDS: chlordiazePOXIDE HCL 25 MG CAPSULE PO SCH ×4 (06:14→22:10)
[2022-09-13] MEDS: ARTIFICIAL TEARS (POLYVINYL ALCOHOL) OPTH DROPS OU SCH (10:24)
[2022-09-13] MEDS: PRENATAL VITAMINS W/ FOLIC ACID TABLET (FP) PO SCH (10:25)
[2022-09-13] MEDS: lamoTRIgine 100 MG TABLET PO SCH (10:25)
[2022-09-13] MEDS: BUDESONIDE/FORMETEROL FUMARATE 160/4.5 mcg INHALER IH SCH ×2 (10:25→22:10)
[2022-09-13] MEDS: ALBUTEROL SO4 HFA INHALER IH PRN ×2 (10:28→16:55)
[2022-09-13] MEDS: LIDOCAINE 5% TOPICAL PATCH TP SCH (10:48)
[2022-09-13] MEDS: chlordiazePOXIDE HCL 25 MG CAPSULE PO PRN ×2 (15:38→20:47)
[2022-09-13] MEDS: NICOTINE POLACRILEX 2 MG GUM BUC PRN ×2 (15:39→22:14)
[2022-09-13] MEDS: traZODone HCL 50 MG TABLET (FP) PO SCH (22:09)
[2022-09-13] MEDS: MIRTAZAPINE 15 MG TABLET (FP) PO SCH (22:09)
[2022-09-13] MEDS: THIAMINE HCL 100 MG TABLET (FP) PO SCH (22:09)
[2022-09-13] MEDS: LIDOCAINE PATCH REMOVAL MC SCH (22:09)
[2022-09-13] MEDS: MONTELUKAST NA 10 MG TABLET PO SCH (22:09)
[2022-09-13] MEDS: METHOCARBAMOL 500 MG TABLET PO PRN (22:10)
[2022-09-13] MEDS: SUVOREXANT 10 MG TABLET PO PRN (22:12)
[2022-09-13] MEDS: ACETAMINOPHEN 325 MG TABLET (FP) PO PRN (22:13)
[2022-09-14] MEDS: chlordiazePOXIDE HCL 25 MG CAPSULE PO SCH ×4 (05:27→22:26)
[2022-09-14] MEDS: PRENATAL VITAMINS W/ FOLIC ACID TABLET (FP) PO SCH (10:11)
[2022-09-14] MEDS: lamoTRIgine 100 MG TABLET PO SCH (10:11)
[2022-09-14] MEDS: BUDESONIDE/FORMETEROL FUMARATE 160/4.5 mcg INHALER IH SCH ×2 (10:11→22:25)
[2022-09-14] MEDS: LIDOCAINE 5% TOPICAL PATCH TP SCH (10:12)
[2022-09-14] MEDS: ARTIFICIAL TEARS (POLYVINYL ALCOHOL) OPTH DROPS OU SCH (10:12)
[2022-09-14] MEDS: hydrOXYzine PAMOATE 25 MG CAPSULE (FP) PO PRN (10:16)
[2022-09-14] MEDS: ACETAMINOPHEN 325 MG TABLET (FP) PO PRN (10:17)
[2022-09-14] MEDS: METHOCARBAMOL 500 MG TABLET PO PRN ×2 (12:12→18:08)
[2022-09-14] MEDS: NICOTINE POLACRILEX 2 MG GUM BUC PRN (18:09)
[2022-09-14] MEDS: chlordiazePOXIDE HCL 25 MG CAPSULE PO PRN (20:04)
[2022-09-14] MEDS: SUVOREXANT 10 MG TABLET PO PRN (22:23)
[2022-09-14] MEDS: MIRTAZAPINE 15 MG TABLET (FP) PO SCH (22:25)
[2022-09-14] MEDS: MONTELUKAST NA 10 MG TABLET PO SCH (22:25)
[2022-09-14] MEDS: THIAMINE HCL 100 MG TABLET (FP) PO SCH (22:25)
[2022-09-14] MEDS: traZODone HCL 50 MG TABLET (FP) PO SCH (22:25)
[2022-09-14] MEDS: LIDOCAINE PATCH REMOVAL MC SCH (22:28)
[2022-09-14] MEDS: ALBUTEROL SO4 HFA INHALER IH PRN (22:29)
[2022-09-14] MEDS: MAGNESIUM HYDROX 2400MG/30ML ORAL SUSPENSION 30 ML CUP PO PRN (22:29)
[2022-09-15] MEDS: chlordiazePOXIDE HCL 10 MG CAPSULE PO SCH ×4 (05:23→22:14)
[2022-09-15] MEDS: MAGNESIUM HYDROX 2400MG/30ML ORAL SUSPENSION 30 ML CUP PO PRN (05:24)
[2022-09-15] MEDS: PRENATAL VITAMINS W/ FOLIC ACID TABLET (FP) PO SCH (10:20)
[2022-09-15] MEDS: LIDOCAINE 5% TOPICAL PATCH TP SCH (10:21)
[2022-09-15] MEDS: lamoTRIgine 100 MG TABLET PO SCH (10:22)
[2022-09-15] MEDS: ARTIFICIAL TEARS (POLYVINYL ALCOHOL) OPTH DROPS OU SCH (10:22)
[2022-09-15] MEDS: BUDESONIDE/FORMETEROL FUMARATE 160/4.5 mcg INHALER IH SCH ×2 (10:22→22:14)
[2022-09-15] MEDS: PANTOPRAZOLE 40 MG TABLET PO SCH (10:22)
[2022-09-15] MEDS: ACETAMINOPHEN 325 MG TABLET (FP) PO PRN (10:24)
[2022-09-15] MEDS: METHOCARBAMOL 500 MG TABLET PO PRN ×2 (10:25→17:49)
[2022-09-15] MEDS: hydrOXYzine PAMOATE 25 MG CAPSULE (FP) PO PRN ×2 (10:28→17:49)
[2022-09-15] MEDS: NICOTINE POLACRILEX 2 MG GUM BUC PRN ×2 (10:28→22:18)
[2022-09-15] MEDS: chlordiazePOXIDE HCL 10 MG CAPSULE PO PRN ×2 (13:08→19:58)
[2022-09-15] MEDS: ALBUTEROL SO4 HFA INHALER IH PRN (17:51)
[2022-09-15] MEDS: METHYL SALICYLATE/MENTHOL OINT 30 GM TUBE TP SCH (22:13)
[2022-09-15] MEDS: THIAMINE HCL 100 MG TABLET (FP) PO SCH (22:13)
[2022-09-15] MEDS: traZODone HCL 50 MG TABLET (FP) PO SCH (22:13)
[2022-09-15] MEDS: MIRTAZAPINE 15 MG TABLET (FP) PO SCH (22:13)
[2022-09-15] MEDS: MONTELUKAST NA 10 MG TABLET PO SCH (22:13)
[2022-09-15] MEDS: LIDOCAINE PATCH REMOVAL MC SCH (22:14)
[2022-09-15] MEDS: SUVOREXANT 10 MG TABLET PO PRN (22:16)
[2022-09-16] MEDS: chlordiazePOXIDE HCL 10 MG CAPSULE PO SCH ×2 (05:34→17:32)
[2022-09-16] MEDS: METHOCARBAMOL 500 MG TABLET PO PRN ×2 (05:35→14:54)
[2022-09-16] MEDS: hydrOXYzine PAMOATE 25 MG CAPSULE (FP) PO PRN ×2 (08:36→14:55)
[2022-09-16] MEDS: ARTIFICIAL TEARS (POLYVINYL ALCOHOL) OPTH DROPS OU SCH (10:08)
[2022-09-16] MEDS: BUDESONIDE/FORMETEROL FUMARATE 160/4.5 mcg INHALER IH SCH ×2 (10:08→22:19)
[2022-09-16] MEDS: PANTOPRAZOLE 40 MG TABLET PO SCH (10:08)
[2022-09-16] MEDS: ALBUTEROL SO4 HFA INHALER IH PRN (10:08)
[2022-09-16] MEDS: lamoTRIgine 100 MG TABLET PO SCH (10:09)
[2022-09-16] MEDS: METHYL SALICYLATE/MENTHOL OINT 30 GM TUBE TP SCH ×2 (10:09→22:16)
[2022-09-16] MEDS: LIDOCAINE 5% TOPICAL PATCH TP SCH (10:09)
[2022-09-16] MEDS: PRENATAL VITAMINS W/ FOLIC ACID TABLET (FP) PO SCH (10:09)
[2022-09-16] MEDS: NICOTINE POLACRILEX 2 MG GUM BUC PRN (13:21)
[2022-09-16] MEDS: GABAPENTIN 100 MG CAPSULE PO SCH ×2 (14:54→22:16)
[2022-09-16] MEDS: THIAMINE HCL 100 MG TABLET (FP) PO SCH (22:17)
[2022-09-16] MEDS: traZODone HCL 50 MG TABLET (FP) PO SCH (22:17)
[2022-09-16] MEDS: MIRTAZAPINE 15 MG TABLET (FP) PO SCH (22:17)
[2022-09-16] MEDS: MONTELUKAST NA 10 MG TABLET PO SCH (22:17)
[2022-09-16] MEDS: SUVOREXANT 10 MG TABLET PO PRN (22:20)
[2022-09-16] MEDS: LIDOCAINE PATCH REMOVAL MC SCH (22:36)
[2022-09-17] MEDS ORDERED: chlordiazePOXIDE HCL 10 MG CAPSULE PO ONE (05:00)
[2022-09-17] MEDS: GABAPENTIN 100 MG CAPSULE PO SCH (05:25)
[2022-09-17] MEDS: hydrOXYzine PAMOATE 25 MG CAPSULE (FP) PO PRN (07:18)
[2022-09-17] MEDS: ACETAMINOPHEN 325 MG TABLET (FP) PO PRN (07:22)
[2022-09-17 08:29] VITALS: BP 92/59; PULSE 54; RESP 18; TEMP 98.1
[2022-09-17] MEDS ORDERED: HYDROCORTISONE 1% TOPICAL CREAM 30 GM TUBE TP SCH (10:00)
[2022-09-17] MEDS: PRENATAL VITAMINS W/ FOLIC ACID TABLET (FP) PO SCH (10:33)
[2022-09-17] MEDS: lamoTRIgine 100 MG TABLET PO SCH (10:34)
[2022-09-17] MEDS: ARTIFICIAL TEARS (POLYVINYL ALCOHOL) OPTH DROPS OU SCH (10:36)
[2022-09-17] MEDS: PANTOPRAZOLE 40 MG TABLET PO SCH (10:36)
[2022-09-17] MEDS: METHYL SALICYLATE/MENTHOL OINT 30 GM TUBE TP SCH (10:36)
[2022-09-17] MEDS: LIDOCAINE 5% TOPICAL PATCH TP SCH (10:37)
[2022-09-17] MEDS: BUDESONIDE/FORMETEROL FUMARATE 160/4.5 mcg INHALER IH SCH (10:38)
[2022-09-17] MEDS: ALBUTEROL SO4 HFA INHALER IH PRN (10:40)
[2022-09-17] MEDS: NICOTINE POLACRILEX 2 MG GUM BUC PRN (10:42)
== END 2022-09-17 12:23 | disposition other institution (70) | DRG 774 ==
LOC: YASAS 12:19 → Y3N 15:21
PROVIDERS: ADMIT Allergy & Immunology; ATTEND Surgery
PROC: HZ2ZZZZ Detoxification Services for Substance Abuse Treatment (ICD-10-PCS; principal; 2022-09-12)
DX: F10.230 Alcohol dependence with withdrawal, uncomplicated (principal); F14.20 Cocaine dependence, uncomplicated; F17.210 Nicotine dependence, cigarettes, uncomplicated; F31.9 Bipolar disorder, unspecified; F41.9 Anxiety disorder, unspecified; I10 Essential (primary) hypertension; J45.20 Mild intermittent asthma, uncomplicated; K21.9 Gastro-esophageal reflux disease without esophagitis; M54.50 Low back pain, unspecified; G89.29 Other chronic pain; R26.2 Difficulty in walking, not elsewhere classified
CPT/HCPCS: 36415; 80053; 81025; 82140; 85027; 86780; C9803-CS; U0003; U0005

== ENCOUNTER 2022-09-17 12:30 | Inpatient (IN) | payer OTHER ==
[2022-09-17] MEDS ORDERED: P-EPHED 60MG/TRIPROLIDI 2.5MG TABLET PO PRN (14:04)
[2022-09-17] MEDS ORDERED: guaiFENesin 200 MG/10 ML 10 ML UNIT-DOSE CUPS PO PRN (14:04)
[2022-09-17] MEDS ORDERED: LOPERAMIDE HCL 2 MG CAPSULE PO PRN (14:04)
[2022-09-17] MEDS ORDERED: MAGNESIUM HYDROX 2400MG/30ML ORAL SUSPENSION 30 ML CUP PO PRN (14:04)
[2022-09-17] MEDS ORDERED: MAGNESIUM CITRATE 300 ML BOTTLE PO PRN (14:04)
[2022-09-17] MEDS ORDERED: ACETAMINOPHEN 325 MG TABLET (FP) PO PRN (14:04)
[2022-09-17] MEDS ORDERED: BENZOCAINE/MENTHOL (CHLORASEPTIC ) LOZENGE MM PRN (14:04)
[2022-09-17] MEDS ORDERED: ALBUTEROL SO4 HFA INHALER IH PRN (14:06)
[2022-09-17] MEDS ORDERED: HYDROCORTISONE 1% TOPICAL CREAM 30 GM TUBE TP PRN (14:11)
[2022-09-17] MEDS: hydrOXYzine PAMOATE 25 MG CAPSULE (FP) PO PRN ×2 (16:36→21:50)
[2022-09-17] MEDS: traZODone HCL 50 MG TABLET (FP) PO SCH (21:41)
[2022-09-17] MEDS: MELATONIN 5 MG TABLETS PO SCH (21:41)
[2022-09-17] MEDS: METHYL SALICYLATE/MENTHOL OINT 30 GM TUBE TP SCH (21:41)
[2022-09-17] MEDS: THIAMINE HCL 100 MG TABLET (FP) PO SCH (21:42)
[2022-09-17] MEDS: GABAPENTIN 100 MG CAPSULE PO SCH (21:42)
[2022-09-17] MEDS: MONTELUKAST NA 10 MG TABLET PO SCH (21:43)
[2022-09-17] MEDS: METHOCARBAMOL 500 MG TABLET PO PRN (21:43)
[2022-09-17] MEDS: BUDESONIDE/FORMETEROL FUMARATE 160/4.5 mcg INHALER IH SCH (21:43)
[2022-09-17] MEDS: MIRTAZAPINE 15 MG TABLET (FP) PO SCH (21:43)
[2022-09-17] MEDS: MAG HYDROX/AL HYDROX/SIMETH 30 ML UNIT-DOSE CUP PO PRN (21:49)
[2022-09-18] MEDS: GABAPENTIN 100 MG CAPSULE PO SCH ×3 (06:28→21:27)
[2022-09-18] MEDS: hydrOXYzine PAMOATE 25 MG CAPSULE (FP) PO PRN (06:28)
[2022-09-18] MEDS: METHOCARBAMOL 500 MG TABLET PO PRN ×2 (06:30→21:27)
[2022-09-18] MEDS: NICOTINE 10 MG CARTRIDGE (INHALER) IH PRN ×2 (06:32→10:21)
[2022-09-18] MEDS ORDERED: PANTOPRAZOLE 40 MG TABLET PO SCH (10:00)
[2022-09-18] MEDS: PRENATAL VITAMINS W/ FOLIC ACID TABLET (FP) PO SCH (10:18)
[2022-09-18] MEDS: lamoTRIgine 100 MG TABLET PO SCH (10:19)
[2022-09-18] MEDS: ARTIFICIAL TEARS (POLYVINYL ALCOHOL) OPTH DROPS OU SCH (10:19)
[2022-09-18] MEDS: NICOTINE 7 MG/24 HOURS TOPICAL PATCH TD SCH (10:20)
[2022-09-18] MEDS: METHYL SALICYLATE/MENTHOL OINT 30 GM TUBE TP SCH ×2 (10:20→21:30)
[2022-09-18] MEDS: LIDOCAINE 5% TOPICAL PATCH TP SCH (10:20)
[2022-09-18] MEDS: BUDESONIDE/FORMETEROL FUMARATE 160/4.5 mcg INHALER IH SCH ×2 (10:21→21:30)
[2022-09-18] MEDS: NICOTINE POLACRILEX 2 MG GUM BUC PRN ×2 (10:26→18:06)
[2022-09-18] MEDS: IBUPROFEN 400 MG TABLET (FP) PO PRN ×2 (10:51→19:05)
[2022-09-18] MEDS: hydrOXYzine PAMOATE 50 MG CAPSULE (FP) PO PRN ×3 (11:32→22:16)
[2022-09-18] MEDS: clonazePAM 0.5 MG ODT TABLETS SL SCH (14:14)
[2022-09-18] MEDS: MIRTAZAPINE 15 MG TABLET (FP) PO SCH (21:27)
[2022-09-18] MEDS: MONTELUKAST NA 10 MG TABLET PO SCH (21:27)
[2022-09-18] MEDS: traZODone HCL 50 MG TABLET (FP) PO SCH (21:28)
[2022-09-18] MEDS: MELATONIN 5 MG TABLETS PO SCH (21:28)
[2022-09-18] MEDS: LIDOCAINE PATCH REMOVAL MC SCH (21:28)
[2022-09-18] MEDS: THIAMINE HCL 100 MG TABLET (FP) PO SCH (21:31)
[2022-09-19] MEDS: GABAPENTIN 100 MG CAPSULE PO SCH ×3 (06:29→21:33)
[2022-09-19] MEDS: hydrOXYzine PAMOATE 50 MG CAPSULE (FP) PO PRN ×5 (06:35→21:34)
[2022-09-19] MEDS: NICOTINE POLACRILEX 2 MG GUM BUC PRN ×3 (07:02→17:51)
[2022-09-19] MEDS: FAMOTIDINE 20 MG TABLET PO PRN (10:19)
[2022-09-19] MEDS: PRENATAL VITAMINS W/ FOLIC ACID TABLET (FP) PO SCH (10:19)
[2022-09-19] MEDS: BUDESONIDE/FORMETEROL FUMARATE 160/4.5 mcg INHALER IH SCH ×2 (10:19→21:33)
[2022-09-19] MEDS: clonazePAM 0.5 MG ODT TABLETS SL SCH (10:20)
[2022-09-19] MEDS: ARTIFICIAL TEARS (POLYVINYL ALCOHOL) OPTH DROPS OU SCH (10:20)
[2022-09-19] MEDS: METHYL SALICYLATE/MENTHOL OINT 30 GM TUBE TP SCH ×2 (10:20→21:32)
[2022-09-19] MEDS: NICOTINE 7 MG/24 HOURS TOPICAL PATCH TD SCH (10:21)
[2022-09-19] MEDS: lamoTRIgine 100 MG TABLET PO SCH (10:47)
[2022-09-19] MEDS: LIDOCAINE 5% TOPICAL PATCH TP SCH (10:47)
[2022-09-19] MEDS: HYDROCORTISONE 2.5% TOPICAL CREAM 30 GM TUBE RC SCH (10:49)
[2022-09-19] MEDS: MAG HYDROX/AL HYDROX/SIMETH 30 ML UNIT-DOSE CUP PO PRN (13:03)
[2022-09-19] MEDS: METHOCARBAMOL 500 MG TABLET PO PRN ×2 (14:27→21:34)
[2022-09-19] MEDS: ARTIFICIAL TEARS (POLYVINYL ALCOHOL) OPTH DROPS OU PRN (21:32)
[2022-09-19] MEDS: MELATONIN 5 MG TABLETS PO SCH (21:34)
[2022-09-19] MEDS: MIRTAZAPINE 15 MG TABLET (FP) PO SCH (21:34)
[2022-09-19] MEDS: traZODone HCL 50 MG TABLET (FP) PO SCH (21:34)
[2022-09-19] MEDS: MONTELUKAST NA 10 MG TABLET PO SCH (21:34)
[2022-09-19] MEDS: THIAMINE HCL 100 MG TABLET (FP) PO SCH (21:34)
[2022-09-19] MEDS: LIDOCAINE PATCH REMOVAL MC SCH (21:36)
[2022-09-20] MEDS: hydrOXYzine PAMOATE 50 MG CAPSULE (FP) PO PRN ×4 (02:52→22:17)
[2022-09-20] MEDS: MAG HYDROX/AL HYDROX/SIMETH 30 ML UNIT-DOSE CUP PO PRN ×2 (02:54→22:21)
[2022-09-20] MEDS: GABAPENTIN 100 MG CAPSULE PO SCH ×3 (06:36→21:40)
[2022-09-20] MEDS: METHOCARBAMOL 500 MG TABLET PO PRN (06:38)
[2022-09-20] MEDS: NICOTINE 10 MG CARTRIDGE (INHALER) IH PRN (06:44)
[2022-09-20] MEDS: PRENATAL VITAMINS W/ FOLIC ACID TABLET (FP) PO SCH (10:33)
[2022-09-20] MEDS: ARTIFICIAL TEARS (POLYVINYL ALCOHOL) OPTH DROPS OU PRN (10:34)
[2022-09-20] MEDS: HYDROCORTISONE 2.5% TOPICAL CREAM 30 GM TUBE RC SCH (10:34)
[2022-09-20] MEDS: METHYL SALICYLATE/MENTHOL OINT 30 GM TUBE TP SCH ×2 (10:34→21:41)
[2022-09-20] MEDS: lamoTRIgine 100 MG TABLET PO SCH (10:35)
[2022-09-20] MEDS: LIDOCAINE 5% TOPICAL PATCH TP SCH (10:35)
[2022-09-20] MEDS: BUDESONIDE/FORMETEROL FUMARATE 160/4.5 mcg INHALER IH SCH ×2 (10:35→21:39)
[2022-09-20] MEDS: IBUPROFEN 400 MG TABLET (FP) PO PRN ×2 (10:36→20:09)
[2022-09-20] MEDS: NICOTINE 7 MG/24 HOURS TOPICAL PATCH TD SCH (10:36)
[2022-09-20] MEDS: clonazePAM 0.5 MG ODT TABLETS SL SCH (10:38)
[2022-09-20] MEDS: FAMOTIDINE 20 MG TABLET PO PRN (12:42)
[2022-09-20] MEDS: NICOTINE POLACRILEX 2 MG GUM BUC PRN ×3 (13:08→22:21)
[2022-09-20] MEDS: MIRTAZAPINE 15 MG TABLET (FP) PO SCH (21:40)
[2022-09-20] MEDS: THIAMINE HCL 100 MG TABLET (FP) PO SCH (21:40)
[2022-09-20] MEDS: LIDOCAINE PATCH REMOVAL MC SCH (21:40)
[2022-09-20] MEDS: MONTELUKAST NA 10 MG TABLET PO SCH (21:40)
[2022-09-20] MEDS: traZODone HCL 50 MG TABLET (FP) PO SCH (21:40)
[2022-09-20] MEDS: MELATONIN 5 MG TABLETS PO SCH (21:41)
[2022-09-21] MEDS: hydrOXYzine PAMOATE 50 MG CAPSULE (FP) PO PRN ×3 (06:58→21:53)
[2022-09-21] MEDS: METHOCARBAMOL 500 MG TABLET PO PRN ×2 (06:58→21:53)
[2022-09-21] MEDS: GABAPENTIN 100 MG CAPSULE PO SCH ×3 (08:17→21:53)
[2022-09-21] MEDS: PRENATAL VITAMINS W/ FOLIC ACID TABLET (FP) PO SCH (09:22)
[2022-09-21] MEDS: clonazePAM 0.5 MG ODT TABLETS SL SCH (09:22)
[2022-09-21] MEDS: NICOTINE 7 MG/24 HOURS TOPICAL PATCH TD SCH (09:23)
[2022-09-21] MEDS: lamoTRIgine 100 MG TABLET PO SCH (09:23)
[2022-09-21] MEDS: HYDROCORTISONE 2.5% TOPICAL CREAM 30 GM TUBE RC SCH (09:24)
[2022-09-21] MEDS: METHYL SALICYLATE/MENTHOL OINT 30 GM TUBE TP SCH ×2 (09:25→21:56)
[2022-09-21] MEDS: BUDESONIDE/FORMETEROL FUMARATE 160/4.5 mcg INHALER IH SCH ×2 (09:25→22:21)
[2022-09-21] MEDS: MAG HYDROX/AL HYDROX/SIMETH 30 ML UNIT-DOSE CUP PO PRN ×2 (09:26→16:56)
[2022-09-21] MEDS: LIDOCAINE 5% TOPICAL PATCH TP SCH (09:26)
[2022-09-21] MEDS: NICOTINE POLACRILEX 2 MG GUM BUC PRN ×3 (09:27→21:57)
[2022-09-21] MEDS: LIDOCAINE PATCH REMOVAL MC SCH (21:52)
[2022-09-21] MEDS: MIRTAZAPINE 15 MG TABLET (FP) PO SCH (21:53)
[2022-09-21] MEDS: traZODone HCL 50 MG TABLET (FP) PO SCH (21:53)
[2022-09-21] MEDS: FAMOTIDINE 20 MG TABLET PO PRN (21:53)
[2022-09-21] MEDS: MONTELUKAST NA 10 MG TABLET PO SCH (21:53)
[2022-09-21] MEDS: THIAMINE HCL 100 MG TABLET (FP) PO SCH (21:53)
[2022-09-21] MEDS: SUVOREXANT 15 MG TABLET PO PRN (21:54)
[2022-09-21] MEDS: MELATONIN 5 MG TABLETS PO SCH (22:21)
[2022-09-22] MEDS: hydrOXYzine PAMOATE 50 MG CAPSULE (FP) PO PRN ×4 (06:53→22:02)
[2022-09-22] MEDS: GABAPENTIN 100 MG CAPSULE PO SCH ×3 (06:54→22:02)
[2022-09-22] MEDS: BUDESONIDE/FORMETEROL FUMARATE 160/4.5 mcg INHALER IH SCH ×2 (10:17→22:01)
[2022-09-22] MEDS: lamoTRIgine 100 MG TABLET PO SCH (10:18)
[2022-09-22] MEDS: PRENATAL VITAMINS W/ FOLIC ACID TABLET (FP) PO SCH (10:18)
[2022-09-22] MEDS: clonazePAM 0.5 MG ODT TABLETS SL SCH (10:19)
[2022-09-22] MEDS: LIDOCAINE 5% TOPICAL PATCH TP SCH (10:19)
[2022-09-22] MEDS: METHYL SALICYLATE/MENTHOL OINT 30 GM TUBE TP SCH ×2 (10:20→22:01)
[2022-09-22] MEDS: HYDROCORTISONE 2.5% TOPICAL CREAM 30 GM TUBE RC SCH (10:21)
[2022-09-22] MEDS: NICOTINE 7 MG/24 HOURS TOPICAL PATCH TD SCH (10:22)
[2022-09-22] MEDS: NICOTINE POLACRILEX 2 MG GUM BUC PRN ×3 (10:22→17:36)
[2022-09-22] MEDS: METHOCARBAMOL 500 MG TABLET PO PRN ×2 (10:23→22:02)
[2022-09-22] MEDS: ARTIFICIAL TEARS (POLYVINYL ALCOHOL) OPTH DROPS OU PRN (10:25)
[2022-09-22] MEDS: IBUPROFEN 400 MG TABLET (FP) PO PRN (11:43)
[2022-09-22] MEDS: NICOTINE 10 MG CARTRIDGE (INHALER) IH PRN (17:32)
[2022-09-22] MEDS: MONTELUKAST NA 10 MG TABLET PO SCH (22:01)
[2022-09-22] MEDS: MIRTAZAPINE 15 MG TABLET (FP) PO SCH (22:02)
[2022-09-22] MEDS: THIAMINE HCL 100 MG TABLET (FP) PO SCH (22:02)
[2022-09-22] MEDS: FAMOTIDINE 20 MG TABLET PO PRN (22:02)
[2022-09-22] MEDS: MELATONIN 5 MG TABLETS PO SCH (22:03)
[2022-09-22] MEDS: SUVOREXANT 15 MG TABLET PO PRN (22:03)
[2022-09-22] MEDS: traZODone HCL 50 MG TABLET (FP) PO SCH (22:03)
[2022-09-22] MEDS: LIDOCAINE PATCH REMOVAL MC SCH (22:03)
[2022-09-23] MEDS: GABAPENTIN 100 MG CAPSULE PO SCH ×2 (06:21→14:14)
[2022-09-23] MEDS: hydrOXYzine PAMOATE 50 MG CAPSULE (FP) PO PRN ×2 (06:21→14:14)
[2022-09-23 07:34] VITALS: RESP 16; TEMP 97.5
[2022-09-23] MEDS: NICOTINE POLACRILEX 2 MG GUM BUC PRN ×2 (08:58→14:15)
[2022-09-23] MEDS: PRENATAL VITAMINS W/ FOLIC ACID TABLET (FP) PO SCH (10:23)
[2022-09-23] MEDS: clonazePAM 0.5 MG ODT TABLETS SL SCH (10:24)
[2022-09-23] MEDS: LIDOCAINE 5% TOPICAL PATCH TP SCH (10:24)
[2022-09-23] MEDS: BUDESONIDE/FORMETEROL FUMARATE 160/4.5 mcg INHALER IH SCH (10:24)
[2022-09-23] MEDS: METHYL SALICYLATE/MENTHOL OINT 30 GM TUBE TP SCH (10:25)
[2022-09-23] MEDS: HYDROCORTISONE 2.5% TOPICAL CREAM 30 GM TUBE RC SCH (10:25)
[2022-09-23] MEDS: lamoTRIgine 100 MG TABLET PO SCH (10:25)
[2022-09-23] MEDS: NICOTINE 7 MG/24 HOURS TOPICAL PATCH TD SCH (10:25)
[2022-09-23] MEDS: METHOCARBAMOL 500 MG TABLET PO PRN (10:26)
[2022-09-23 12:21] VITALS: BP 91/61; PULSE 67
[2022-09-23] MEDS ORDERED: SUVOREXANT 5 MG TABLET PO PRN (22:00)
== END 2022-09-23 18:15 | disposition left against medical advice (07) | DRG 770 ==
LOC: YASAS 12:30 → Y5N 12:31
PROVIDERS: ADMIT Allergy & Immunology; ATTEND Psychiatry & Neurology Pain Medicine
PROC: HZ42ZZZ Group Counseling for Substance Abuse Treatment, Cognitive-Behavioral (ICD-10-PCS; principal; 2022-09-17)
DX: F10.20 Alcohol dependence, uncomplicated (principal); F14.20 Cocaine dependence, uncomplicated; F17.210 Nicotine dependence, cigarettes, uncomplicated; F31.9 Bipolar disorder, unspecified; F41.9 Anxiety disorder, unspecified; I10 Essential (primary) hypertension; J45.909 Unspecified asthma, uncomplicated; K21.9 Gastro-esophageal reflux disease without esophagitis; K64.9 Unspecified hemorrhoids; Z86.2 Personal history of diseases of the blood and blood-forming organs and certain disorders involving the immune mechanism
CPT/HCPCS: 36415; 86803; 93005; 93010

== ENCOUNTER 2024-04-02 14:19 | Inpatient (IN) | payer OTHER ==
[2024-04-02 15:15] VITALS: BMI 19.0
[2024-04-02] MEDS ORDERED: BENZONATATE 200 MG CAPSULE PO PRN (15:43)
[2024-04-02] MEDS ORDERED: BISMUTH SUBSALICYLATE 262 MG/15 ML BTL PO PRN (15:43)
[2024-04-02] MEDS ORDERED: MAGNESIUM HYDROX 2400MG/30ML ORAL SUSPENSION 30 ML CUP PO PRN (15:43)
[2024-04-02] MEDS ORDERED: NALOXONE HCL (KLOXXADO) 8 MG SPRAY NS PRN (15:43)
[2024-04-02] MEDS ORDERED: MAG HYDROX/AL HYDROX/SIMETH 30 ML UNIT-DOSE CUP PO PRN (15:43)
[2024-04-02] MEDS ORDERED: POLYETHYLENE GLYCOL (HEALTHYLAX) 3350 17 GM PACKET PO PRN (15:43)
[2024-04-02] MEDS ORDERED: NALOXONE HCL 0.4 MG/ML VIAL IM PRN (15:43)
[2024-04-02] MEDS ORDERED: guaiFENesin 600 MG TABLET.ER (FP) PO PRN (15:43)
[2024-04-02] MEDS ORDERED: BENZOCAINE/MENTHOL (CHLORASEPTIC ) LOZENGE MM PRN (15:43)
[2024-04-02] MEDS ORDERED: IBUPROFEN 400 MG TABLET (FP) PO PRN (15:43)
[2024-04-02] MEDS ORDERED: DICYCLOMINE HCL 10 MG CAPSULE PO PRN (15:43)
[2024-04-02] MEDS ORDERED: LOPERAMIDE HCL 2 MG CAPSULE PO PRN (15:43)
[2024-04-02] MEDS ORDERED: PRENATAL VITAMINS W/ FOLIC ACID TABLET (FP) PO ONE (16:03)
[2024-04-02] MEDS ORDERED: LORazepam 2 MG TABLET ONE (16:03)
[2024-04-02] MEDS: LORazepam 2 MG TABLET PO SCH (16:05)
[2024-04-02] MEDS: PRENATAL VITAMINS W/ FOLIC ACID TABLET (FP) PO SCH (16:05)
[2024-04-02] MEDS: hydrOXYzine PAMOATE 25 MG CAPSULE (FP) PO PRN (18:11)
[2024-04-02] MEDS: FLU VACCINE (FLULAVAL) PF 60 MCG/0.5 ML SYRINGE 2023-2024 IM ONE (18:17)
[2024-04-02] MEDS: NICOTINE POLACRILEX 4 MG GUM BUC PRN (18:18)
[2024-04-02] MEDS: LORazepam 1 MG TABLET PO PRN (20:04)
[2024-04-02] MEDS: MELATONIN 5 MG TABLETS PO SCH (22:25)
[2024-04-02] MEDS: THIAMINE 100 MG TABLET PO SCH (22:25)
[2024-04-02] MEDS: METHOCARBAMOL 500 MG TABLET PO PRN (22:26)
[2024-04-02] MEDS: IBUPROFEN 600 MG TABLET (FP) PO PRN (22:27)
[2024-04-02] MEDS: LIDOCAINE PATCH REMOVAL MC SCH (22:27)
[2024-04-02] MEDS: SUVOREXANT 5 MG TABLET PO PRN (22:29)
[2024-04-02] MEDS: ALBUTEROL SO4 HFA INHALER IH PRN (23:03)
[2024-04-03] MEDS: FLU VACCINE (FLULAVAL) PF 60 MCG/0.5 ML SYRINGE 2023-2024 IM ONE (10:46)
[2024-04-03] MEDS: LIDOCAINE 5% TOPICAL PATCH TP SCH (10:48)
[2024-04-03 14:42] LABS: CHLORIDE 107 mmol/L (98-107); POTASSIUM 4.3 mmol/L (3.5-5.1); SODIUM 138 mmol/L (136-145)
[2024-04-03 14:43] LABS: HEMOGLOBIN 10.6 GM/dL (10.7-15.3); MCH 24.8 pg (25.7-33.7); MCHC 31.1 g/dl (32.0-36.0); MEAN CELL VOLUME 79.8 fl (80-96); PLATELET COUNT 259 10^3/uL (134-434); RBC 4.26 M/mm3 (3.60-5.2); RDW 20.4 % (11.6-15.6); WHITE BLOOD COUNT 5.5 K/mm3 (4.0-10.0)
[2024-04-03 14:48] LABS: ALBUMIN 2.9 g/dl (3.4-5.0); ANION GAP 3 mmol/L (4-13); CALCIUM 8.8 mg/dL (8.5-10.1); CO2 29 mmol/L (21-32); GLUCOSE,RANDOM 108 mg/dL (74-106)
[2024-04-03 14:51] LABS: CREATININE 0.6 mg/dL (0.55-1.3); SGOT/AST 14 U/L (15-37); SGPT/ALT 18 U/L (13-61)
[2024-04-03 14:53] LABS: ALK PHOS 70 U/L (45-117); BILIRUBIN,TOTAL 0.4 mg/dL (0.2-1); TOT PROT 5.9 g/dl (6.4-8.2)
[2024-04-03 15:41] LABS: HIV INTERPRETATION NEGATIVE (NEGATIVE)
[2024-04-04] MEDS: LORazepam 1 MG TABLET PO SCH (05:59)
[2024-04-04] MEDS: lamoTRIgine 100 MG TABLET PO SCH (10:07)
[2024-04-04] MEDS: ONDANSETRON *ODT* 4 MG TABLET SL PRN (12:43)
[2024-04-04] MEDS: ACETAMINOPHEN 325 MG TABLET (FP) PO PRN (16:34)
[2024-04-05] MEDS ORDERED: LORazepam 0.5 MG TABLET PO PRN
[2024-04-05] MEDS: LORazepam 0.5 MG TABLET PO SCH (05:41)
[2024-04-05] MEDS: AMOXICILLIN 500 MG CAPSULE (FP) PO SCH (13:59)
[2024-04-05 14:11] VITALS: RESP 16
[2024-04-05] MEDS: CHLORHEXIDINE GLUCONATE 0.12% 15ML CUP MM SCH (22:30)
[2024-04-06] MEDS: LORazepam 0.5 MG TABLET PO ONE (05:57)
[2024-04-06 06:44] VITALS: BP 108/68; PULSE 79; TEMP 98
== END 2024-04-06 10:08 | disposition home or self-care (01) | DRG 774 ==
LOC: YASAS 14:19 → Y6N 16:04
PROVIDERS: ADMIT Allergy & Immunology; ATTEND Surgery
PROC: HZ2ZZZZ Detoxification Services for Substance Abuse Treatment (ICD-10-PCS; principal; 2024-04-02)
DX: F10.230 Alcohol dependence with withdrawal, uncomplicated (principal); F14.20 Cocaine dependence, uncomplicated; F17.210 Nicotine dependence, cigarettes, uncomplicated; J45.20 Mild intermittent asthma, uncomplicated; K04.7 Periapical abscess without sinus; R63.4 Abnormal weight loss; Z68.1 Body mass index [BMI] 19.9 or less, adult
CPT/HCPCS: 36415; 80053; 80305; 80307; 82140; 85027; 86780; 86803; 87389; 90686; 93005; 93010; G0008; Q0162